=== PATIENT | female | born 1965 | race Caucasian/White ===

== ENCOUNTER 2020-03-01 06:39 | Outpatient (REF) | payer OTHER, SELFPAY ==
[2020-03-01 07:30] LABS: Alanine Aminotransferase 29 U/L (0-31); Albumin Level 4.3 g/dL (3.5-5.0); Alkaline Phosphatase 87 U/L (39-117); Anion Gap 11 (12-20); Aspartate Amino Transferase 19 U/L (5-31); Bilirubin Total 0.6 mg/dL (0.0-1.0); Blood Urea Nitrogen 20 mg/dL (9-16); Calcium 9.8 mg/dL (8.4-10.2); Carbon Dioxide 28 mmol/L (22-29); Chloride 105 mmol/L (96-108); Cholesterol 174 mg/dL; Estimated Glomerular Filt Rate > 60; Glucose Fasting 152 mg/dL (60-99); HDL Cholesterol 45 mg/dL; LDL Cholesterol Calculated 95 mg/dl; Potassium 4.2 mmol/l (3.3-5.1); Sodium 140 mmol/L (135-145); Total Protein 7.1 g/dL (6.5-8.0); Triglycerides 172 mg/dL
[2020-03-01 07:31] LABS: Creatinine Urine 147.66 mg/dL; Estimated Average Glucose 140 mg/dL; Hemoglobin A1c % 6.5 %; Microalbum/Creatinine Ratio Ur 6.7 ug/mg cr
== END 2020-03-01 06:40 | disposition home or self-care (01) ==
LOC: HO.LAB 06:39
PROVIDERS: Visit Provider Internal Medicine
DX: E78.5 Hyperlipidemia, unspecified (principal); R73.9 Hyperglycemia, unspecified; Z00.00 Encounter for general adult medical examination without abnormal findings
CPT/HCPCS: 80053; 80061; 82043; 83036

== ENCOUNTER 2020-06-07 09:09 | Outpatient (REF) | payer OTHER, SELFPAY ==
[2020-06-07 11:53] LABS: Alanine Aminotransferase 31 U/L (0-31); Albumin Level 4.5 g/dL (3.5-5.0); Alkaline Phosphatase 74 U/L (39-117); Anion Gap 15 (12-20); Aspartate Amino Transferase 21 U/L (5-31); Bilirubin Total 0.5 mg/dL (0.0-1.0); Blood Urea Nitrogen 21 mg/dL (9-16); Carbon Dioxide 26 mmol/L (22-29); Chloride 104 mmol/L (96-108); Cholesterol 197 mg/dL; Estimated Glomerular Filt Rate > 60; Glucose Fasting 128 mg/dL (60-99); HDL Cholesterol 46 mg/dL; LDL Cholesterol Calculated 107 mg/dl; Potassium 4.3 mmol/L (3.3-5.1); Sodium 141 mmol/L (135-145); Total Protein 7.3 g/dL (6.5-8.0); Triglycerides 222 mg/dL
[2020-06-07 12:08] LABS: Creatinine Urine 142.78 mg/dL; Microalbum/Creatinine Ratio Ur 7.7 ug/mg cr
[2020-06-07 13:23] LABS: Estimated Average Glucose 128 mg/dL; Hemoglobin A1c % 6.1 %
== END 2020-06-07 09:10 | disposition home or self-care (01) ==
LOC: HO.HMGCLDS 09:09
PROVIDERS: PCP Internal Medicine; Visit Provider Internal Medicine
DX: E11.9 Type 2 diabetes mellitus without complications (principal); K82.4 Cholesterolosis of gallbladder
CPT/HCPCS: 36415; 80053; 80061; 82043; 83036

== ENCOUNTER 2020-06-21 08:18 | Outpatient (REF) | payer OTHER, SELFPAY ==
--- NOTE | ~2020-06-21 | US_ITS ---
EXAMINATION: US ABDOMEN COMPLETE CLINICAL INFORMATION: Gallbladder polyp. COMPARISON: Ultrasound abdomen 08/11/2019 and 07/02/2017. TECHNIQUE: Real-time imaging of the abdominal viscera. FINDINGS: PANCREAS: The pancreas is homogeneous echotexture. The pancreatic duct measures 0.24 cm. ABDOMINAL AORTA: The proximal, mid, and distal segments are normal in caliber. INFERIOR VENA CAVA: Visualized portions are normal. LIVER: The liver is enlarged with the right hepatic lobe measuring 17.8 cm in length and left lobe measuring 15.5 cm in length. There is diffuse increased echogenicity. The liver contour is normal. No focal hepatic lesion. There is no intrahepatic biliary duct dilatation seen. GALLBLADDER: There are small echogenic nonmobile polyp measuring 0.48 x 0.43 x 0.40 cm. The gallbladder is physiologically distended without evidence of stones, sludge, wall thickening or pericholecystic fluid. COMMON BILE DUCT: Normal in caliber measuring 0.51 cm in diameter. RIGHT KIDNEY: There is echogenic stone midpole measuring 0.5 x 0.3 x 0.5 cm and a lower pole stone measuring 0.4 x 0.3 x 0.3 cm. There is no caliectasis, hydronephrosis or focal parenchymal lesions. The kidney measures 11.7 cm in maximum dimension. LEFT KIDNEY: Normal. No hydronephrosis. No renal calculi or focal parenchymal lesions. The kidney measures 12.2 cm in maximum dimension. SPLEEN: Normal. The spleen measures 10.6 cm in maximum dimension. FREE FLUID: None. US/US abdomen complete IMPRESSION: Nonobstructive echogenic stones right kidney. Small nonmobile gallbladder polyp measuring 0.48 seen. Mild hepatomegaly with hepatic steatosis.
== END 2020-06-21 08:19 | disposition home or self-care (01) ==
LOC: HO.HMGCX 08:18
PROVIDERS: Visit Provider Internal Medicine
DX: K82.4 Cholesterolosis of gallbladder (principal); E11.9 Type 2 diabetes mellitus without complications
CPT/HCPCS: 76700

== ENCOUNTER 2021-04-21 10:17 | Outpatient (REF) | payer OTHER, SELFPAY ==
[2021-04-21 11:22] LABS: Alanine Aminotransferase 50 U/L (0-31); Albumin Level 4.5 g/dL (3.5-5.0); Alkaline Phosphatase 74 U/L (39-117); Anion Gap 11 (12-20); Aspartate Amino Transferase 33 U/L (5-31); Bilirubin Total 0.7 mg/dL (0.0-1.0); Blood Urea Nitrogen 21 mg/dL (9-16); Calcium 9.8 mg/dL (8.4-10.2); Carbon Dioxide 27 mmol/L (22-29); Chloride 105 mmol/L (96-108); Estimated Glomerular Filt Rate > 60; Glucose Fasting 129 mg/dL (60-99); Potassium 4.4 mmol/L (3.3-5.1); Sodium 139 mmol/L (135-145); Total Protein 7.3 g/dL (6.5-8.0)
[2021-04-21 11:36] LABS: Estimated Average Glucose 148 mg/dL; Hemoglobin A1c % 6.8 %
== END 2021-04-21 10:18 | disposition home or self-care (01) ==
LOC: HO.LAB 10:17
PROVIDERS: PCP Internal Medicine; Visit Provider Internal Medicine
DX: E11.9 Type 2 diabetes mellitus without complications (principal); E66.3 Overweight
CPT/HCPCS: 36415; 80053; 83036

== ENCOUNTER 2021-10-24 07:51 | Outpatient (REF) | payer OTHER, SELFPAY ==
[2021-10-24 08:26] LABS: Estimated Average Glucose 140 mg/dL; Hemoglobin A1c % 6.5 %
[2021-10-24 08:50] LABS: Alanine Aminotransferase 47 U/L (0-31); Albumin Level 4.3 g/dL (3.5-5.0); Alkaline Phosphatase 76 U/L (39-117); Anion Gap 13 (12-20); Aspartate Amino Transferase 32 U/L (5-31); Bilirubin Total 0.5 mg/dL (0.0-1.0); Blood Urea Nitrogen 22 mg/dL (9-16); Calcium 9.2 mg/dL (8.4-10.2); Carbon Dioxide 27 mmol/L (22-29); Chloride 105 mmol/L (96-108); Cholesterol 170 mg/dL; Estimated Glomerular Filt Rate > 60; Glucose Fasting 141 mg/dL (60-99); HDL Cholesterol 39 mg/dL; LDL Cholesterol Calculated 94 mg/dl; Potassium 4.2 mmol/L (3.3-5.1); Sodium 141 mmol/L (135-145); Total Protein 6.9 g/dL (6.5-8.0); Triglycerides 189 mg/dL
[2021-10-24 09:51] LABS: Creatinine Urine 135.64 mg/dL; Microalbum/Creatinine Ratio Ur 5.8 ug/mg cr
== END 2021-10-24 07:52 | disposition home or self-care (01) ==
LOC: HO.LAB 07:51
PROVIDERS: PCP Internal Medicine; Visit Provider Internal Medicine
DX: Z00.00 Encounter for general adult medical examination without abnormal findings (principal); E11.9 Type 2 diabetes mellitus without complications
CPT/HCPCS: 36415; 80053; 80061; 82043; 83036

== ENCOUNTER 2022-02-02 08:01 | Outpatient (REF) | payer OTHER, SELFPAY ==
[2022-02-02 08:43] LABS: Estimated Average Glucose 137 mg/dL; Hemoglobin A1c % 6.4 %
[2022-02-02 08:56] LABS: Alanine Aminotransferase 28 U/L (0-31); Albumin Level 4.2 g/dL (3.5-5.0); Alkaline Phosphatase 91 U/L (39-117); Anion Gap 15 (12-20); Aspartate Amino Transferase 17 U/L (5-31); Bilirubin Total 0.5 mg/dL (0.0-1.0); Blood Urea Nitrogen 21 mg/dL (9-16); Calcium 9.5 mg/dL (8.4-10.2); Carbon Dioxide 24 mmol/L (22-29); Chloride 105 mmol/L (96-108); Cholesterol 168 mg/dL; Estimated Glomerular Filt Rate > 60; Glucose Fasting 140 mg/dL (60-99); HDL Cholesterol 39 mg/dL; LDL Cholesterol Calculated 88 mg/dl; Potassium 4.1 mmol/L (3.3-5.1); Sodium 140 mmol/L (135-145); Total Protein 6.6 g/dL (6.5-8.0); Triglycerides 208 mg/dL
[2022-02-02 09:33] LABS: Creatinine Urine 151.98 mg/dL; Microalbum/Creatinine Ratio Ur 5.2 ug/mg cr
== END 2022-02-02 08:02 | disposition home or self-care (01) ==
LOC: HO.LAB 08:01
PROVIDERS: PCP Internal Medicine; Visit Provider Internal Medicine
DX: E11.9 Type 2 diabetes mellitus without complications (principal); F41.9 Anxiety disorder, unspecified; E66.3 Overweight
CPT/HCPCS: 36415; 80053; 80061; 82043; 83036

== ENCOUNTER 2022-06-12 09:15 | Outpatient (REF) | payer OTHER, SELFPAY ==
[2022-06-12 10:39] LABS: Estimated Average Glucose 140 mg/dL; Hemoglobin A1c % 6.5 %
[2022-06-12 11:05] LABS: Alanine Aminotransferase 36 U/L (0-31); Albumin Level 4.3 g/dL (3.5-5.0); Alkaline Phosphatase 85 U/L (39-117); Anion Gap 13 (12-20); Aspartate Amino Transferase 26 U/L (5-31); Bilirubin Total 0.7 mg/dL (0.0-1.0); Blood Urea Nitrogen 20 mg/dL (9-16); Calcium 9.5 mg/dL (8.4-10.2); Carbon Dioxide 26 mmol/L (22-29); Chloride 107 mmol/L (96-108); Cholesterol 199 mg/dL; Estimated Glomerular Filt Rate > 60; Glucose Fasting 148 mg/dL (60-99); HDL Cholesterol 41 mg/dL; LDL Cholesterol Calculated 110 mg/dl; Potassium 4.6 mmol/L (3.3-5.1); Sodium 141 mmol/L (135-145); Total Protein 6.9 g/dL (6.5-8.0); Triglycerides 242 mg/dL
== END 2022-06-12 09:16 | disposition home or self-care (01) ==
LOC: HO.LAB 09:15
PROVIDERS: PCP Internal Medicine; Visit Provider Internal Medicine
DX: E11.9 Type 2 diabetes mellitus without complications (principal)
CPT/HCPCS: 36415; 80053; 80061; 83036

== ENCOUNTER 2022-11-26 08:13 | Outpatient (REF) | payer OTHER, SELFPAY ==
[2022-11-26 08:39] LABS: MANUAL DIFF FLAG NO
[2022-11-26 08:55] LABS: Basophils Percent Auto 0.5 % (0-2); Eosinophils Absolute Auto 0.1 X10*3/uL (0.0-0.4); Eosinophils Percent Auto 1.4 % (0-4); Hematocrit 44.6 % (37.0-47.0); Hemoglobin 14.8 g/dl (12.0-16.0); Imm Gran Abs Auto 0.03 X10*3/uL (0.00-0.03); Imm Gran Pct Auto 0.5 % (0.0-0.4); Lymphocytes Absolute Auto 2.2 X10*3/uL (1.2-4.9); Lymphocytes Percent Auto 32.5 % (20-40); Mean Corpuscular HGB Conc 33.2 g/dl (31.0-35.0); Mean Corpuscular Hemoglobin 28.8 pg (27.0-33.0); Mean Corpuscular Volume 86.8 fL (80.0-98.0); Mean Platelet Volume 9.3 fL (9.4-12.3); Monocytes Absolute Auto 0.5 X10*3/uL (0.1-1.2); Monocytes Percent Auto 7.7 % (2-11); Neutrophils Absolute Auto 3.8 x10*3/uL (2.0-8.3); Neutrophils Percent Auto 57.4 % (45-73); Platelet Count 201 X10*3/uL (160-400); Red Blood Count 5.14 X10*6/uL (4.20-5.50); Red Cell Distribution Width 12.2 % (11.0-16.0); White Blood Count 6.6 X10*3/uL (4.8-10.8)
[2022-11-26 09:23] LABS: Estimated Average Glucose 111 mg/dL; Hemoglobin A1c % 5.5 % (<6.0)
[2022-11-26 11:12] LABS: Alanine Aminotransferase 31 U/L (0-31); Albumin Level 4.1 g/dL (3.5-5.0); Alkaline Phosphatase 73 U/L (39-117); Anion Gap 13 (12-20); Aspartate Amino Transferase 22 U/L (5-31); Bilirubin Total 0.5 mg/dL (0.0-1.0); Blood Urea Nitrogen 21 mg/dL (9-16); Calcium 9.4 mg/dL (8.4-10.2); Carbon Dioxide 25 mmol/L (22-29); Chloride 107 mmol/L (96-108); Cholesterol 184 mg/dL (<200); Estimated Glomerular Filt Rate > 60; Glucose Fasting 108 mg/dL (60-99); HDL Cholesterol 45 mg/dL (>40); LDL Cholesterol Calculated 101 mg/dL (<100); Potassium 4.2 mmol/L (3.3-5.1); Sodium 141 mmol/L (135-145); Total Protein 6.9 g/dL (6.5-8.0); Triglycerides 194 mg/dL (<150)
[2022-11-26 11:30] LABS: Creatinine Urine 164.86 mg/dL; Microalbumin Urine < 5.0 mg/L
== END 2022-11-26 08:14 | disposition home or self-care (01) ==
LOC: HO.LAB 08:13
PROVIDERS: PCP Internal Medicine; Visit Provider Internal Medicine
DX: E11.9 Type 2 diabetes mellitus without complications (principal); E66.3 Overweight
CPT/HCPCS: 36415; 80053; 80061; 82043; 82570; 83036; 85025

== ENCOUNTER 2022-11-29 11:30 | Outpatient (AMB) | payer OTHER, SELFPAY ==
[2022-11-29 11:47] VITALS: BP 116/74; PULSE 87; O2SAT 97; BMI 36.2
--- NOTE | 2022-11-29 11:47 | MHC.PC.OV ---
Vital Signs 11/29/22 11:47 Height 5 ft 6 in Weight 224 lb BMI 36.2 BP 116/74 Blood Pressure Location Lt brachial Position Sitting Pulse 87 Pulse Source Pulse Oximeter Pulse Oximetry (%) 97 Oxygen Delivery Method Room Air Intake Visit Reasons: PHy Intake Note: Pt is here today for PE. Pt states that she has [employer] for cytology exam. Allergies erythromycin base Allergy (Unknown, Verified 11/29/22 11:54) Unknown hazelnut Allergy (Unknown, Verified 11/29/22 11:54) Unknown Sulfa (Sulfonamide Antibiotics) Allergy (Unknown, Verified 11/29/22 11:54) Unknown sulfamethoxazole [From Bactrim] Allergy (Unknown, Verified 11/29/22 11:54) Hives trimethoprim [From Bactrim] Allergy (Unknown, Verified 11/29/22 11:54) Hives Tobacco use date assessed: 11/29/22 Dental Screening Dental Screen Date: 11/29/22 Did you have a dental visit in the last 12 months?: Yes Did you have a dental problem in the last 6 months where you did not have access to dental care?: No Was dental information given to patient?: Patient has dentist HPI PHy HPI Details PT presents for PE PFSH Medical History Gallbladder polyp Mammogram normal Abnormal colonoscopy Overweight Anxiety Annual physical exam Endometrial adenocarcinoma DM type 2 (diabetes mellitus, type 2) Surgical History History of surgery Family History Father Colon cancer Breast cancer Lung cancer Diabetes mellitus HTN (hypertension) Mother Diabetes mellitus HTN (hypertension) Social History Housing: House Alcohol intake: current Patient Tobacco Use Status: Former Tobacco user Years Smoked: quit 16 years ago e-Cigarette/Vaping Use: Never Used Second Hand Smoke Exposure: No Current occupational status: employed Current occupation: [employer] Current occupational exposures/hazards: No Cognitive needs: No Hearing needs: No Vision needs: No Questionnaire Thrive Questionnaire Date Thrive assessed: 06/19/22 PARTH-7 AMB Questionnaire PARTH-7 Date PARTH - 7 assessed: 04/12/23 Source: Developed by Drs. Earnest Clayton, Joselyn Cedillo, Venu Shoemaker and colleagues, with an educational abdiaziz from [employer]. Review of Systems Const All systems reviewed & are unremarkable except as noted in HPI and below Reports no additional complaints Eyes Reports no additional complaints ENT Reports no additional complaints Card Reports no additional complaints Resp Reports no additional complaints GI Reports no additional complaints Reports no additional complaints Physical exam (Primary Care) Vital Signs: Last Vital Signs Pulse 87 11/29/22 11:47 BP 116/74 11/29/22 11:47 Pulse Ox 97 11/29/22 11:47 Oxygen Delivery Method Room Air 11/29/22 11:47 BMI result Body Mass Index 36.2 Tobacco/Smoking Status: Tobacco use Status Tobacco use date assessed 11/29/22 11/29/22 11:58 Patient Tobacco Use Status Former Tobacco user 11/29/22 11:58 e-Cigarette/Vaping Use Never Used 11/29/22 11:47 Thrive Assessment: Date of Thrive Assessment Date Thrive assessed 06/19/22 11/29/22 11:47 Const General: no acute distress HENMT Head: Yes normal to inspection Ears: hearing grossly normal bilaterally Mouth: Normal oral and palatal mucosa present Throat: Yes posterior oropharynx normal Neck Neck: Yes no lymphadenopathy and Yes supple Resp Effort & Inspection: normal respiratory effort Auscultation: clear to auscultation bilaterally Cardio Rhythm: regular rhythm Heart sounds: S1 normal heart sound present and S2 normal heart sound present GI Inspection: Yes normal to inspection Palpation (GI): Soft to palpation Percussion: Yes normal to percussion Auscultation: normal bowel sounds Assessment and Plan Assessment & Plan (1) DM type 2 (diabetes mellitus, type 2): Code(s): E11.9 - Type 2 diabetes mellitus without complications Plan: A1C is 5.5, cont ADA exercise, current meds (2) Anxiety: Code(s): F41.9 - Anxiety disorder, unspecified Plan: cont Citalopram (3) Annual physical exam: Code(s): Z00.00 - Encounter for general adult medical examination without abnormal findings Plan: well balanced diet, exercise, weight loss discussed, f/u 4 months Orders: Orders Comprehensive [place]. Panel Fast 4 Months E11.9 - Type 2 diabetes mellitus without complications, Z00.00 - Encounter for general adult medical examination without abnormal findings Hemoglobin A1c 4 Months E11.9 - Type 2 diabetes mellitus without complications, Z00.00 - Encounter for general adult medical examination without abnormal findings Microalbumin 24 hr Urine 4 Months E11.9 - Type 2 diabetes mellitus without complications, Z00.00 - Encounter for general adult medical examination without abnormal findings Lipid Panel 4 Months E11.9 - Type 2 diabetes mellitus without complications, Z00.00 - Encounter for general adult medical examination without abnormal findings Complete Blood Count Auto Diff 4 Months E11.9 - Type 2 diabetes mellitus without complications, Z00.00 - Encounter for general adult medical examination without abnormal findings Referrals Counseling Referral F41.9 - Anxiety disorder, unspecified Coding Level of Care Code Est Pt Prev Care 40-64y(14709) Diagnoses DM type 2 (diabetes mellitus, type 2) E11.9 Anxiety F41.9 Annual physical exam Z00.00
== END 2022-11-29 14:52 | disposition home or self-care (01) ==
PROVIDERS: PCP Internal Medicine; Visit Provider Internal Medicine
DX: E11.9 Type 2 diabetes mellitus without complications (principal); F41.9 Anxiety disorder, unspecified; Z00.00 Encounter for general adult medical examination without abnormal findings
CPT/HCPCS: 99396

== ENCOUNTER 2023-04-26 08:57 | Outpatient (REF) | payer OTHER, SELFPAY ==
[2023-04-26 09:13] LABS: MANUAL DIFF FLAG NO
[2023-04-26 10:04] LABS: Basophils Percent Auto 0.5 % (0-2); Eosinophils Absolute Auto 0.1 X10*3/uL (0.0-0.4); Eosinophils Percent Auto 0.8 % (0-4); Hematocrit 45.5 % (37.0-47.0); Hemoglobin 14.9 g/dl (12.0-16.0); Imm Gran Abs Auto 0.02 X10*3/uL (0.00-0.03); Imm Gran Pct Auto 0.3 % (0.0-0.4); Lymphocytes Absolute Auto 1.8 X10*3/uL (1.2-4.9); Lymphocytes Percent Auto 29.4 % (20-40); Mean Corpuscular HGB Conc 32.7 g/dl (31.0-35.0); Mean Corpuscular Hemoglobin 28.4 pg (27.0-33.0); Mean Corpuscular Volume 86.8 fL (80.0-98.0); Mean Platelet Volume 10.2 fL (9.4-12.3); Monocytes Absolute Auto 0.4 X10*3/uL (0.1-1.2); Monocytes Percent Auto 6.9 % (2-11); Neutrophils Absolute Auto 3.9 x10*3/uL (2.0-8.3); Neutrophils Percent Auto 62.1 % (45-73); Platelet Count 232 X10*3/uL (160-400); Red Blood Count 5.24 X10*6/uL (4.20-5.50); Red Cell Distribution Width 12.4 % (11.0-16.0); White Blood Count 6.3 X10*3/uL (4.8-10.8)
[2023-04-26 10:25] LABS: Estimated Average Glucose 108 mg/dL; Hemoglobin A1c % 5.4 % (<6.0)
[2023-04-26 10:35] LABS: Alanine Aminotransferase 33 U/L (0-31); Albumin Level 4.3 g/dL (3.5-5.0); Alkaline Phosphatase 80 U/L (39-117); Anion Gap 12 (12-20); Aspartate Amino Transferase 21 U/L (5-31); Bilirubin Total 0.5 mg/dL (0.0-1.0); Blood Urea Nitrogen 20 mg/dL (9-16); Calcium 9.9 mg/dL (8.4-10.2); Carbon Dioxide 27 mmol/L (22-29); Chloride 107 mmol/L (96-108); Cholesterol 176 mg/dL (<200); Estimated Glomerular Filt Rate > 60; Glucose Fasting 91 mg/dL (60-99); HDL Cholesterol 48 mg/dL (>40); LDL Cholesterol Calculated 103 mg/dL (<100); Potassium 4.2 mmol/L (3.3-5.1); Sodium 142 mmol/L (135-145); Total Protein 7.2 g/dL (6.5-8.0); Triglycerides 125 mg/dL (<150)
== END 2023-04-26 08:58 | disposition home or self-care (01) ==
LOC: HO.LAB 08:57
PROVIDERS: PCP Internal Medicine; Visit Provider Internal Medicine
DX: Z00.00 Encounter for general adult medical examination without abnormal findings (principal); E11.9 Type 2 diabetes mellitus without complications
CPT/HCPCS: 36415; 80053; 80061; 83036; 85025

== ENCOUNTER 2023-04-30 10:53 | Outpatient (AMB) | payer OTHER, SELFPAY ==
[2023-04-30 11:23] VITALS: BP 124/76; PULSE 78; O2SAT 98; BMI 34.7
--- NOTE | 2023-04-30 11:23 | MHC.PC.OV ---
Vital Signs 04/30/23 11:23 Height 5 ft 6 in Weight 215 lb BMI 34.7 BP 124/76 Blood Pressure Location Lt brachial Position Sitting Pulse 78 Pulse Source Pulse Oximeter Pulse Oximetry (%) 98 Oxygen Delivery Method Room Air Intake Visit Reasons: 4 month follow up Intake Note: Pt is here today for 4 months follow up vsit. Allergies erythromycin base Allergy (Unknown, Verified 04/30/23 11:35) Unknown hazelnut Allergy (Unknown, Verified 04/30/23 11:35) Unknown Sulfa (Sulfonamide Antibiotics) Allergy (Unknown, Verified 04/30/23 11:35) Unknown sulfamethoxazole [From Bactrim] Allergy (Unknown, Verified 04/30/23 11:35) Hives trimethoprim [From Bactrim] Allergy (Unknown, Verified 04/30/23 11:35) Hives Medication List - Last Reconciled 04/30/23 by Chata Romero MD citalopram 20 mg PO DAILY dulaglutide (Trulicity) 1.5 mg (0.5 mL) subcut QWEEK dulaglutide (Trulicity) 3 mg (0.5 mL) subcut QWEEK epinephrine (EpiPen 2-Trey) 0.3 mg (0.3 mL) IM Q10M PRN [fish oil 1000 mg daily] lorazepam 0.5 mg PO DAILY PRN metformin ER 1,500 mg (2 x 750 mg) PO DAILY Tobacco use date assessed: 04/30/23 Dental Screening Dental Screen Date: 04/30/23 Did you have a dental visit in the last 12 months?: Yes Did you have a dental problem in the last 6 months where you did not have access to dental care?: No Was dental information given to patient?: Patient has dentist HPI 4 month follow up HPI Details Pt presents for f/u DM 2. Patient has been working out 7 times a week and lost 12 lb. She has been tolerating Trulicity and following ADA diet. Chronic anxiety stable on citalopram. Patient is going to [place] in July for a [facility] Medical History Gallbladder polyp Mammogram normal Abnormal colonoscopy Overweight Anxiety Annual physical exam Endometrial adenocarcinoma DM type 2 (diabetes mellitus, type 2) Surgical History History of surgery Family History Father Colon cancer Breast cancer Lung cancer Diabetes mellitus HTN (hypertension) Mother Diabetes mellitus HTN (hypertension) Social History Housing: House Alcohol intake: current Patient Tobacco Use Status: Former Tobacco user Years Smoked: quit 16 years ago e-Cigarette/Vaping Use: Never Used Second Hand Smoke Exposure: No Current occupational status: employed Current occupation: [employer] Current occupational exposures/hazards: No Cognitive needs: No Hearing needs: No Vision needs: No Questionnaire PHQ-9 Over the last 2 weeks, how often have you been bothered by any of the following problems? 1. Little interest or pleasure in doing things: not at all 2. Feeling down, depressed, or hopeless: not at all 3. Trouble falling or staying asleep, or sleeping too much: not at all 4. Feeling tired or having little energy: not at all 5. Poor appetite or overeating: not at all 6. Feeling bad about yourself - or that you are a failure or have let yourself or your family down: not at all 7. Trouble concentrating on things, such as reading the newspaper or watching television: not at all 8. Moving or speaking so slowly that other people could have noticed. Or the opposite - being so fidgety or restless that you have been moving around a lot more than usual: not at all 9. Thoughts that you would be better off or of hurting yourself in some way: not at all Total score: 0 Depression Screening Interpretation: Negative Depression Screening Done: Yes Source: Developed by Drs. Earnest Clayton, Joselyn Cedillo, Venu Shoemaker and colleagues, with an educational abdiaziz from [employer]. Thrive Questionnaire Date Thrive assessed: 04/30/23 I am a: Patient What is your living situation today?: I have a steady place to live Within the past 12 months, did the food you bought not last and you didn't have the money to get more?: Never true Within the past 12 months, did you worry whether your food would run out before you got money to buy more?: Never true Do you have trouble paying for medicines?: No Do you have trouble getting transportation to medical appointments?: No Do you have trouble paying your heating and electricity bill?: No Do you have trouble taking care of your child, family member or friend?: No Do you have trouble with day-to-day activities such as bathing, preparing meals, shopping, managing finances, etc.?: No Are you currently unemployed and looking for a job?: No Are you interested in more education?: No Please select the resources that you would like help with: None Currently or been in a relationship where the following occur: no concerns reported THRIVE Score: 0 AUDIT C Alcohol Use Questionnaire (AUDIT-C) 1. How often do you have a drink containing alcohol?: Monthly or less 2. How many drinks containing alcohol do you have on a typical day when you are drinking?: 1 or 2 3. How often do you have six or more drinks on one occasion?: Never Total Score: 1 PARTH-7 AMB Questionnaire PARTH-7 Date PARTH - 7 assessed: 04/30/23 Feeling nervous, anxious, or on edge: 0 = Not at all Not being able to stop or control worryin = Not at all Worrying too much about different things: 0 = Not at all Trouble relaxin = Not at all Being so restless that it is hard to sit still: 0 = Not at all Becoming easily annoyed or irritable: 0 = Not at all Feeling afraid as if something awful might happen: 0 = Not at all Total PARTH-7 score (0-4 normal; 5-9 mild; 10-14 moderate; 15-21 severe): 0 Source: Developed by Drs. Earnest Clayton, Joselyn Cedillo, Venu Shoemaker and colleagues, with an educational abdiaziz from [employer]. Review of Systems Const All systems reviewed & are unremarkable except as noted in HPI and below Reports no additional complaints Eyes Reports no additional complaints ENT Reports no additional complaints Card Reports no additional complaints Resp Reports no additional complaints GI Reports no additional complaints Physical exam (Primary Care) Vital Signs: Last Vital Signs Pulse 78 04/30/23 11:23 BP 124/76 04/30/23 11:23 Pulse Ox 98 04/30/23 11:23 Oxygen Delivery Method Room Air 04/30/23 11:23 BMI result Body Mass Index 34.7 Tobacco/Smoking Status: Tobacco use Status Tobacco use date assessed 04/30/23 04/30/23 11:38 Patient Tobacco Use Status Former Tobacco user 04/30/23 11:23 e-Cigarette/Vaping Use Never Used 04/30/23 11:23 PHQ-9: PHQ-9 Score PHQ-9: Total score 0 04/30/23 11:38 Depression Screening Interpretation: Negative Thrive Assessment: Date of Thrive Assessment Date Thrive assessed 04/30/23 04/30/23 11:38 Currently or been in a relationship where the following occur: no concerns reported Const General: no acute distress HENMT Head: Yes normal to inspection Neck Neck: Yes supple Resp Effort & Inspection: normal respiratory effort Auscultation: clear to auscultation bilaterally Cardio Rhythm: regular rhythm Heart sounds: S1 normal heart sound present and S2 normal heart sound present GI Inspection: Yes normal to inspection Palpation (GI): Soft to palpation Percussion: Yes normal to percussion Auscultation: normal bowel sounds Assessment and Plan Assessment & Plan (1) DM type 2 (diabetes mellitus, type 2): Code(s): E11.9 - Type 2 diabetes mellitus without complications Plan: A1c is 5.5. ADA diet regular physical activity continue to to lose weight discussed with the patient. Trulicity will be increased to 3 mg weekly and metformin decreased to 750 mg daily. Follow-up in 3 months with a fasting labs before (2) Overweight: Code(s): E66.3 - Overweight Plan: Continue regular exercise and decrease caloric intake (3) Anxiety: Code(s): F41.9 - Anxiety disorder, unspecified Plan: Continue citalopram (4) Endometrial adenocarcinoma: Comment: s/p hysterectomy 2017, annual surgical oncologist Code(s): C54.1 - Malignant neoplasm of endometrium Plan: Follow-up with surgical oncologist annually Orders: Orders Comprehensive [place]. Panel Fast 3 Months E11.9 - Type 2 diabetes mellitus without complications Hemoglobin A1c 3 Months E11.9 - Type 2 diabetes mellitus without complications Lipid Panel 3 Months E11.9 - Type 2 diabetes mellitus without complications Medications: New dulaglutide (Trulicity) 3 mg (0.5 mL) subcut QWEEK 2 mL 3RF Changed From metformin ER 1,500 mg (2 x 750 mg) PO DAILY 180 tabs 3RF To metformin ER 750 mg PO DAILY 90 tabs 3RF Discontinued dulaglutide (Trulicity) Discontinued Reason: Doctor's Order 1.5 mg (0.5 mL) subcut QWEEK 6 mL 3RF Coding Level of Care Code Est Pt Level 4 (75599) Diagnoses DM type 2 (diabetes mellitus, type 2) E11.9 Overweight E66.3 Anxiety F41.9 Endometrial adenocarcinoma C54.1
== END 2023-04-30 12:06 | disposition home or self-care (01) ==
PROVIDERS: PCP Internal Medicine; Visit Provider Internal Medicine
DX: E11.9 Type 2 diabetes mellitus without complications (principal); E66.3 Overweight; F41.9 Anxiety disorder, unspecified; C54.1 Malignant neoplasm of endometrium
CPT/HCPCS: 99214

== ENCOUNTER 2023-07-09 08:37 | Outpatient (REF) | payer OTHER, SELFPAY ==
[2023-07-09 09:24] LABS: Estimated Average Glucose 111 mg/dL; Hemoglobin A1c % 5.5 % (<6.0)
[2023-07-09 09:41] LABS: Alanine Aminotransferase 23 U/L (0-31); Albumin Level 4.2 g/dL (3.5-5.0); Alkaline Phosphatase 70 U/L (39-117); Anion Gap 12 (12-20); Aspartate Amino Transferase 18 U/L (5-31); Bilirubin Total 0.4 mg/dL (0.0-1.0); Blood Urea Nitrogen 20 mg/dL (9-16); Calcium 9.3 mg/dL (8.4-10.2); Carbon Dioxide 24 mmol/L (22-29); Chloride 108 mmol/L (96-108); Cholesterol 170 mg/dL (<200); Estimated Glomerular Filt Rate > 60; Glucose Fasting 112 mg/dL (60-99); HDL Cholesterol 44 mg/dL (>40); LDL Cholesterol Calculated 106 mg/dL (<100); Potassium 3.9 mmol/L (3.3-5.1); Sodium 140 mmol/L (135-145); Triglycerides 103 mg/dL (<150)
== END 2023-07-09 08:38 | disposition home or self-care (01) ==
LOC: HO.LAB 08:37
PROVIDERS: PCP Internal Medicine; Visit Provider Internal Medicine
DX: E11.9 Type 2 diabetes mellitus without complications (principal)
CPT/HCPCS: 36415; 80053; 80061; 83036

== ENCOUNTER 2023-07-16 11:00 | Outpatient (AMB) | payer OTHER, SELFPAY ==
--- NOTE | 2023-07-16 11:03 | MHC.PC.OV ---
Vital Signs 07/16/23 11:05 Height 5 ft 6 in Weight 201 lb BMI 32.4 BP 122/70 Blood Pressure Location Rt brachial Position Sitting Pulse 75 Pulse Source Pulse Oximeter Pulse Oximetry (%) 98 Oxygen Delivery Method Room Air Intake Visit Reasons: 5M F/U Intake Note: Pt is here today for 5 months follow up visit. Allergies erythromycin base Allergy (Unknown, Verified 07/16/23 11:07) Unknown hazelnut Allergy (Unknown, Verified 07/16/23 11:07) Unknown Sulfa (Sulfonamide Antibiotics) Allergy (Unknown, Verified 07/16/23 11:07) Unknown sulfamethoxazole [From Bactrim] Allergy (Unknown, Verified 07/16/23 11:07) Hives trimethoprim [From Bactrim] Allergy (Unknown, Verified 07/16/23 11:07) Hives Medication List - Last Reconciled 07/16/23 by Chata Romero MD citalopram 20 mg PO DAILY dulaglutide (Trulicity) 3 mg (0.5 mL) subcut QWEEK epinephrine (EpiPen 2-Trey) 0.3 mg (0.3 mL) IM Q10M PRN [fish oil 1000 mg daily] lorazepam 0.5 mg PO DAILY PRN metformin ER 750 mg PO DAILY Tobacco use date assessed: 07/16/23 Dental Screening Dental Screen Date: 04/30/23 HPI 5M F/U HPI Details Pt presents for f/u DM 2. She would lost 12 lb since last visit exercising at the gym every other day and eating well-balanced diet. Patient is going to [place] for her step son wed. [facility] Medical History Gallbladder polyp Mammogram normal Abnormal colonoscopy Overweight Anxiety Annual physical exam Endometrial adenocarcinoma DM type 2 (diabetes mellitus, type 2) Surgical History History of surgery Family History Father Colon cancer Breast cancer Lung cancer Diabetes mellitus HTN (hypertension) Mother Diabetes mellitus HTN (hypertension) Social History Housing: House Alcohol intake: current Patient Tobacco Use Status: Former Tobacco user Years Smoked: quit 16 years ago e-Cigarette/Vaping Use: Never Used Second Hand Smoke Exposure: No service: No Current occupational status: employed Current occupation: [email or web address] Current occupational exposures/hazards: No Cognitive needs: No Hearing needs: No Vision needs: No Questionnaire Thrive Questionnaire Date Thrive assessed: 04/30/23 I am a: Patient What is your living situation today?: I have a steady place to live Within the past 12 months, did the food you bought not last and you didn't have the money to get more?: Never true Within the past 12 months, did you worry whether your food would run out before you got money to buy more?: Never true Please select the resources that you would like help with: None THRIVE Score: 0 AUDIT C Alcohol Use Questionnaire (AUDIT-C) 1. How often do you have a drink containing alcohol?: 2-4 times a month 2. How many drinks containing alcohol do you have on a typical day when you are drinking?: 1 or 2 3. How often do you have six or more drinks on one occasion?: Never Total Score: 2 PARTH-7 AMB Questionnaire PARTH-7 Date PARTH - 7 assessed: 04/30/23 Feeling nervous, anxious, or on edge: 2 = More than half the days Not being able to stop or control worryin = More than half the days Worrying too much about different things: 1 = Several days Trouble relaxin = Several days Being so restless that it is hard to sit still: 1 = Several days Becoming easily annoyed or irritable: 0 = Not at all Feeling afraid as if something awful might happen: 2 = More than half the days Total PARTH-7 score (0-4 normal; 5-9 mild; 10-14 moderate; 15-21 severe): 9 Source: Developed by Drs. Earnest Clayton, Joselyn Cedillo, Venu Shoemaker and colleagues, with an educational abdiaziz from [employer]. Review of Systems Const All systems reviewed & are unremarkable except as noted in HPI and below ENT Reports no additional complaints Card Reports no additional complaints Resp Reports no additional complaints GI Reports no additional complaints Reports no additional complaints Physical exam (Primary Care) Vital Signs: Last Vital Signs Pulse 75 07/16/23 11:05 BP 122/70 07/16/23 11:05 Pulse Ox 98 07/16/23 11:05 Oxygen Delivery Method Room Air 07/16/23 11:05 BMI result Body Mass Index 32.4 Tobacco/Smoking Status: Tobacco use Status Tobacco use date assessed 07/16/23 07/16/23 11:08 Patient Tobacco Use Status Former Tobacco user 07/16/23 11:04 e-Cigarette/Vaping Use Never Used 07/16/23 11:04 Thrive Assessment: Date of Thrive Assessment Date Thrive assessed 04/30/23 07/16/23 11:04 Const General: no acute distress Neck Neck: Yes supple Resp Effort & Inspection: normal respiratory effort Auscultation: clear to auscultation bilaterally Cardio Rhythm: regular rhythm Heart sounds: S1 normal heart sound present and S2 normal heart sound present Assessment and Plan Assessment & Plan (1) DM type 2 (diabetes mellitus, type 2): Code(s): E11.9 - Type 2 diabetes mellitus without complications Plan: A1c is 5.6, ADA diet regular physical activity discussed with the patient she will stop metformin and continue Trulicity. Follow-up in 6 months with a fasting labs before (2) Endometrial adenocarcinoma: Comment: s/p hysterectomy 2016, annual rn gyn Code(s): C54.1 - Malignant neoplasm of endometrium Plan: Follow-up with rn gyn (3) Anxiety: Code(s): F41.9 - Anxiety disorder, unspecified Plan: Continue citalopram follow-up with a counselor (4) Abnormal colonoscopy: Comment: 03/2018 1 polyp , recheck 08/31 FHx of colon ca Code(s): R93.3 - Abnormal findings on diagnostic imaging of other parts of digestive tract Orders: Orders Complete Blood Count Auto Diff 6 Months C54.1 - Malignant neoplasm of endometrium, E11.9 - Type 2 diabetes mellitus without complications, F41.9 - Anxiety disorder, unspecified, R93.3 - Abnormal findings on diagnostic imaging of other parts of digestive tract Hemoglobin A1c 6 Months C54.1 - Malignant neoplasm of endometrium, E11.9 - Type 2 diabetes mellitus without complications, F41.9 - Anxiety disorder, unspecified, R93.3 - Abnormal findings on diagnostic imaging of other parts of digestive tract Microalbumin, Random (w Creat) 6 Months C54.1 - Malignant neoplasm of endometrium, E11.9 - Type 2 diabetes mellitus without complications, F41.9 - Anxiety disorder, unspecified, R93.3 - Abnormal findings on diagnostic imaging of other parts of digestive tract Comprehensive [place]. Panel Fast 6 Months C54.1 - Malignant neoplasm of endometrium, E11.9 - Type 2 diabetes mellitus without complications, F41.9 - Anxiety disorder, unspecified, R93.3 - Abnormal findings on diagnostic imaging of other parts of digestive tract Medications: Refilled lorazepam 0.5 mg PO DAILY PRN 20 tabs 0RF anxiety epinephrine (EpiPen 2-Trey) for 2 doses 0.3 mg (0.3 mL) IM Q10M PRN 2 ea 2RF anaphylaxis Discontinued metformin ER Discontinued Reason: Doctor's Order 750 mg PO DAILY 90 tabs 3RF Coding Level of Care Code Est Pt Level 3 (50728) Diagnoses DM type 2 (diabetes mellitus, type 2) E11.9 Endometrial adenocarcinoma C54.1 Anxiety F41.9 Abnormal colonoscopy R93.3
[2023-07-16 11:05] VITALS: BP 122/70; PULSE 75; O2SAT 98; BMI 32.4
== END 2023-07-16 11:48 | disposition home or self-care (01) ==
PROVIDERS: PCP Internal Medicine; Visit Provider Internal Medicine
DX: E11.9 Type 2 diabetes mellitus without complications (principal); C54.1 Malignant neoplasm of endometrium; F41.9 Anxiety disorder, unspecified; R93.3 Abnormal findings on diagnostic imaging of other parts of digestive tract
CPT/HCPCS: 99213

== ENCOUNTER 2024-02-07 10:09 | Outpatient (REF) | payer OTHER, SELFPAY ==
[2024-02-07 10:25] LABS: MANUAL DIFF FLAG NO
[2024-02-07 10:39] LABS: Basophils Percent Auto 0.4 % (0-2); Eosinophils Absolute Auto 0.1 X10*3/uL (0.0-0.4); Eosinophils Percent Auto 1.8 % (0-4); Hematocrit 44.4 % (37.0-47.0); Hemoglobin 14.6 g/dl (12.0-16.0); Imm Gran Abs Auto 0.02 X10*3/uL (0.00-0.03); Imm Gran Pct Auto 0.3 % (0.0-0.4); Lymphocytes Absolute Auto 2.4 X10*3/uL (1.2-4.9); Lymphocytes Percent Auto 36.1 % (20-40); Mean Corpuscular HGB Conc 32.9 g/dl (31.0-35.0); Mean Corpuscular Hemoglobin 28.2 pg (27.0-33.0); Mean Corpuscular Volume 85.9 fL (80.0-98.0); Mean Platelet Volume 9.1 fL (9.4-12.3); Monocytes Absolute Auto 0.5 X10*3/uL (0.1-1.2); Monocytes Percent Auto 6.9 % (2-11); Neutrophils Absolute Auto 3.6 x10*3/uL (2.0-8.3); Neutrophils Percent Auto 54.5 % (45-73); Platelet Count 194 X10*3/uL (160-400); Red Blood Count 5.17 X10*6/uL (4.20-5.50); Red Cell Distribution Width 12.3 % (11.0-16.0); White Blood Count 6.7 X10*3/uL (4.8-10.8)
[2024-02-07 10:45] LABS: Estimated Average Glucose 120 mg/dL; Hemoglobin A1C 147.2877 umol/L; Hemoglobin A1c % 5.8 % (<6.0); Total Hemoglobin (HGBA1C) 3692.8401 umol/L
[2024-02-07 11:01] LABS: Alanine Aminotransferase 29 U/L (0-31); Albumin Level 4.1 g/dL (3.5-5.0); Alkaline Phosphatase 85 U/L (39-117); Anion Gap 12 (12-20); Aspartate Amino Transferase 23 U/L (5-31); Bilirubin Total 0.4 mg/dL (0.0-1.0); Blood Urea Nitrogen 20 mg/dL (9-16); Calcium 9.2 mg/dL (8.4-10.2); Carbon Dioxide 26 mmol/L (22-29); Chloride 109 mmol/L (96-108); Estimated Glomerular Filt Rate > 60; Glucose Fasting 108 mg/dL (60-99); Potassium 4.1 mmol/L (3.3-5.1); Sodium 143 mmol/L (135-145); Total Protein 6.8 g/dL (6.5-8.0)
[2024-02-07 11:19] LABS: Creatinine Urine 86.12 mg/dL; Microalbumin Urine < 5.0 mg/L
== END 2024-02-07 10:10 | disposition home or self-care (01) ==
LOC: HO.LAB 10:09
PROVIDERS: PCP Internal Medicine; Visit Provider Internal Medicine
DX: F41.9 Anxiety disorder, unspecified (principal); C54.1 Malignant neoplasm of endometrium; E11.9 Type 2 diabetes mellitus without complications; R93.3 Abnormal findings on diagnostic imaging of other parts of digestive tract
CPT/HCPCS: 36415; 80053; 82043; 82570; 83036; 85025

== ENCOUNTER 2024-02-11 12:04 | Outpatient (AMB) | payer OTHER, SELFPAY ==
[2024-02-11 12:38] VITALS: BP 126/76; PULSE 87; O2SAT 97; BMI 35.3
--- NOTE | 2024-02-11 12:38 | A.OFFPC_ITS ---
Vital Signs 02/11/24 12:38 Height 5 ft 6 in Weight 219 lb BMI 35.3 BP 126/76 Blood Pressure Location Lt brachial Position Sitting Pulse 87 Pulse Source Pulse Oximeter Pulse Oximetry (%) 97 Oxygen Delivery Method Room Air Intake Visit Reasons: Medication Review Intake Note: Pt is here today for her medication review Allergies erythromycin base Allergy (Unknown, Verified 02/11/24 12:38) Unknown hazelnut Allergy (Unknown, Verified 02/11/24 12:38) Unknown Sulfa (Sulfonamide Antibiotics) Allergy (Unknown, Verified 02/11/24 12:38) Unknown sulfamethoxazole [From Bactrim] Allergy (Unknown, Verified 02/11/24 12:38) Hives trimethoprim [From Bactrim] Allergy (Unknown, Verified 02/11/24 12:38) Hives Medication List - Last Reconciled 02/11/24 by Chata Romero MD citalopram 20 mg PO DAILY dulaglutide (Trulicity) 4.5 mg (0.5 mL) subcut QWEEK epinephrine (EpiPen 2-Trey) 0.3 mg (0.3 mL) IM Q10M PRN [fish oil 1000 mg daily] lorazepam 0.5 mg PO DAILY PRN Tobacco use date assessed: 02/11/24 Dental Screening Dental Screen Date: 02/11/24 Did you have a dental visit in the last 12 months?: Yes Did you have a dental problem in the last 6 months where you did not have access to dental care?: No Was dental information given to patient?: Patient has dentist HPI Medication Review HPI Details Pt presents for DM2,anxiety, stable on meds. Patient has been under lot of stress taking care of her aging parents. [facility] Medical History (Updated 02/11/24 @ 13:08 by Chata Romero MD) Gallbladder polyp Mammogram normal Abnormal colonoscopy Overweight Anxiety Annual physical exam Endometrial adenocarcinoma DM type 2 (diabetes mellitus, type 2) Surgical History History of surgery Family History Father Colon cancer Breast cancer Lung cancer Diabetes mellitus HTN (hypertension) Mother Diabetes mellitus HTN (hypertension) Social History Housing: House Alcohol intake: current Patient Tobacco Use Status: Former Tobacco user Years Smoked: quit 16 years ago e-Cigarette/Vaping Use: Never Used Second Hand Smoke Exposure: No service: No Current occupational status: employed Current occupation: formerly [employer] [place] Current occupational exposures/hazards: No Cognitive needs: No Hearing needs: No Vision needs: No Questionnaire PHQ-9 Over the last 2 weeks, how often have you been bothered by any of the following problems? 1. Little interest or pleasure in doing things: not at all 2. Feeling down, depressed, or hopeless: not at all 3. Trouble falling or staying asleep, or sleeping too much: not at all 4. Feeling tired or having little energy: not at all 5. Poor appetite or overeating: not at all 6. Feeling bad about yourself - or that you are a failure or have let yourself or your family down: not at all 7. Trouble concentrating on things, such as reading the newspaper or watching television: not at all 8. Moving or speaking so slowly that other people could have noticed. Or the opposite - being so fidgety or restless that you have been moving around a lot more than usual: not at all 9. Thoughts that you would be better off or of hurting yourself in some way: not at all Total score: 0 Depression Screening Interpretation: Negative Depression Screening Done: Yes 50512 - PHQ-9 Billing: Yes Source: Developed by Drs. Earnest Clayton, Joselyn Cedillo, Venu Shoemaker and colleagues, with an educational abdiaziz from [employer]. Thrive Questionnaire Date Thrive assessed: 04/30/23 I am a: Patient What is your living situation today?: I have a steady place to live Within the past 12 months, did the food you bought not last and you didn't have the money to get more?: Never true Within the past 12 months, did you worry whether your food would run out before you got money to buy more?: Never true Do you have trouble paying for medicines?: No Do you have trouble getting transportation to medical appointments?: No Do you have trouble paying your heating and electricity bill?: No Do you have trouble taking care of your child, family member or friend?: No Do you have trouble with day-to-day activities such as bathing, preparing meals, shopping, managing finances, etc.?: No Are you currently unemployed and looking for a job?: No Are you interested in more education?: No Please select the resources that you would like help with: None Currently or been in a relationship where the following occur: No concerns reported THRIVE Score: 0 AUDIT C Alcohol Use Questionnaire (AUDIT-C) 1. How often do you have a drink containing alcohol?: Monthly or less 2. How many drinks containing alcohol do you have on a typical day when you are drinking?: 1 or 2 3. How often do you have six or more drinks on one occasion?: Never Total Score: 1 PARTH-7 AMB Questionnaire PARTH-7 Date PARTH - 7 assessed: 04/30/23 Feeling nervous, anxious, or on edge: 0 = Not at all Not being able to stop or control worryin = Several days Worrying too much about different things: 1 = Several days Trouble relaxin = Several days Being so restless that it is hard to sit still: 0 = Not at all Becoming easily annoyed or irritable: 0 = Not at all Feeling afraid as if something awful might happen: 1 = Several days Total PARTH-7 score (0-4 normal; 5-9 mild; 10-14 moderate; 15-21 severe): 4 Source: Developed by Drs. Earnest Clayton, Joselyn Cedillo, Venu Shoemaker and colleagues, with an educational abdiaziz from [employer]. Review of Systems Const All systems reviewed & are unremarkable except as noted in HPI and below Eyes Reports no additional complaints ENT Reports no additional complaints Card Reports no additional complaints Resp Reports no additional complaints GI Reports no additional complaints Reports no additional complaints Physical exam (Primary Care) Vital Signs: Last Vital Signs Pulse 87 02/11/24 12:38 BP 126/76 02/11/24 12:38 Pulse Ox 97 02/11/24 12:38 Oxygen Delivery Method Room Air 02/11/24 12:38 BMI result Body Mass Index 35.3 Tobacco/Smoking Status: Tobacco use Status Tobacco use date assessed 02/11/24 02/11/24 12:42 Patient Tobacco Use Status Former Tobacco user 02/11/24 12:42 e-Cigarette/Vaping Use Never Used 02/11/24 12:42 PHQ-9: PHQ-9 Score PHQ-9: Total score 0 02/11/24 12:42 Depression Screening Interpretation: Negative Thrive Assessment: Date of Thrive Assessment Date Thrive assessed 04/30/23 02/11/24 12:42 Currently or been in a relationship where the following occur: No concerns reported Const General: no acute distress [facility] General nose exam: Normal external nose present Throat: Yes posterior oropharynx normal Resp Effort & Inspection: normal respiratory effort Auscultation: clear to auscultation bilaterally Cardio Rhythm: regular rhythm Heart sounds: S1 normal heart sound present and S2 normal heart sound present GI Inspection: Yes normal to inspection Palpation (GI): Soft to palpation Percussion: Yes normal to percussion Auscultation: normal bowel sounds Coding Level of Care Code Est Pt Level 4 (90340) Diagnoses DM type 2 (diabetes mellitus, type 2) E11.9 Annual physical exam Z00.00 Anxiety F41.9 Overweight E66.3 Abnormal colonoscopy R93.3 Additional Codes PHQ-9 - 48547 - PHQ-9 Billing: Yes ([id number]) Assessment & Plan Assessment & Plan (1) DM type 2 (diabetes mellitus, type 2): Code(s): E11.9 - Type 2 diabetes mellitus without complications Category: Medical Plan: A1c is 5.8. Increase Trulicity to 4.5 mg continue ADA diet increase physical activity follow-up in 4 months (2) Annual physical exam: Code(s): Z00.00 - Encounter for general adult medical examination without abnormal findings Category: Medical Plan: Return for physical in 4 months (3) Anxiety: Code(s): F41.9 - Anxiety disorder, unspecified Category: Medical Plan: Continue citalopram (4) Overweight: Code(s): E66.3 - Overweight Category: Medical Plan: Increase physical activity decrease caloric intake weight loss discussed with the patient (5) Abnormal colonoscopy: Comment: 03/2018 1 polyp , rechecked 08/31 FHx of colon ca, Code(s): R93.3 - Abnormal findings on diagnostic imaging of other parts of digestive tract Category: Medical Plan: f/u with GI Orders: Orders Hemoglobin A1c 4 Months E11.9 - Type 2 diabetes mellitus without complications, F41.9 - Anxiety disorder, unspecified, Z00.00 - Encounter for general adult medical examination without abnormal findings Complete Blood Count Auto Diff 4 Months E11.9 - Type 2 diabetes mellitus without complications, F41.9 - Anxiety disorder, unspecified, Z00.00 - Encounter for general adult medical examination without abnormal findings Microalbumin, Random (w Creat) 4 Months E11.9 - Type 2 diabetes mellitus without complications, F41.9 - Anxiety disorder, unspecified, Z00.00 - Encounter for general adult medical examination without abnormal findings Comprehensive [place]. Panel Fast 4 Months E11.9 - Type 2 diabetes mellitus without complications, F41.9 - Anxiety disorder, unspecified, Z00.00 - Encounter for general adult medical examination without abnormal findings TSH reflex Free T4 4 Months E11.9 - Type 2 diabetes mellitus without complications, F41.9 - Anxiety disorder, unspecified, Z00.00 - Encounter for general adult medical examination without abnormal findings Lipid Panel 4 Months E11.9 - Type 2 diabetes mellitus without complications, F41.9 - Anxiety disorder, unspecified, Z00.00 - Encounter for general adult medical examination without abnormal findings Medications: New dulaglutide (Trulicity) 4.5 mg (0.5 mL) subcut QWEEK 6 mL 1RF Discontinued dulaglutide (Trulicity) Discontinued Reason: Doctor's Order 3 mg (0.5 mL) subcut QWEEK 2 mL 3RF
== END 2024-02-11 13:09 | disposition home or self-care (01) ==
PROVIDERS: PCP Internal Medicine; Visit Provider Internal Medicine
DX: E11.9 Type 2 diabetes mellitus without complications (principal); Z00.00 Encounter for general adult medical examination without abnormal findings; F41.9 Anxiety disorder, unspecified; E66.3 Overweight; R93.3 Abnormal findings on diagnostic imaging of other parts of digestive tract

== ENCOUNTER → 2024-02-11 12:04 | Outpatient (BNVA) | payer OTHER, SELFPAY | PROVIDERS: PCP Internal Medicine; Visit Provider Internal Medicine | DX: E11.9 Type 2 diabetes mellitus without complications (principal); F41.9 Anxiety disorder, unspecified; E66.3 Overweight; R93.3 Abnormal findings on diagnostic imaging of other parts of digestive tract; Z79.899 Other long term (current) drug therapy | CPT/HCPCS: 96127 ==

== ENCOUNTER 2024-08-06 10:48 | Outpatient (REF) | payer BC, SELFPAY ==
--- OUTSIDE RECORDS SUMMARY | 2024-08-06 11:37 | XMS_ITS ---
Author Name [facility] Organization Unknown Encounters Encounter Type Encounter Reason Primary Diagnosis Location Date Ambulatory [facility] 05/01/2021 Care Team Organization Name Specialty Phone Email Start Date End Da te [facility] PCP,No Primary Care 05/01/2021 10/27/2023 [facility] NO PCP Primary Care 05/01/2021 05/01/2021
[2024-08-06 13:19] LABS: MANUAL DIFF FLAG NO
[2024-08-06 13:27] LABS: Basophils Percent Auto 0.6 % (0-2); Eosinophils Absolute Auto 0.1 X10*3/uL (0.0-0.4); Eosinophils Percent Auto 1.4 % (0-4); Hematocrit 44.8 % (37.0-47.0); Imm Gran Abs Auto 0.02 X10*3/uL (0.00-0.03); Imm Gran Pct Auto 0.3 % (0.0-0.4); Mean Corpuscular HGB Conc 33.5 g/dl (31.0-35.0); Mean Corpuscular Hemoglobin 28.8 pg (27.0-33.0); Mean Platelet Volume 9.8 fL (9.4-12.3); Monocytes Absolute Auto 0.5 X10*3/uL (0.1-1.2); Monocytes Percent Auto 7.5 % (2-11); Neutrophils Absolute Auto 3.7 x10*3/uL (2.0-8.3); Neutrophils Percent Auto 59.2 % (45-73); Platelet Count 222 X10*3/uL (160-400); Red Blood Count 5.21 X10*6/uL (4.20-5.50); Red Cell Distribution Width 12.3 % (11.0-16.0); White Blood Count 6.3 X10*3/uL (4.8-10.8)
[2024-08-06 13:47] LABS: Estimated Average Glucose 128 mg/dL; Hemoglobin A1c % 6.1 % (<6.0)
[2024-08-06 13:58] LABS: Alanine Aminotransferase 34 U/L (0-31); Albumin Level 4.4 g/dL (3.5-5.0); Alkaline Phosphatase 75 U/L (39-117); Anion Gap 10 (12-20); Aspartate Amino Transferase 27 U/L (5-31); Bilirubin Total 0.6 mg/dL (0.0-1.0); Blood Urea Nitrogen 22 mg/dL (9-16); Calcium 9.5 mg/dL (8.4-10.2); Carbon Dioxide 27 mmol/L (22-29); Chloride 109 mmol/L (96-108); Cholesterol 194 mg/dL (<200); Estimated Glomerular Filt Rate > 60; Glucose Fasting 127 mg/dL (60-99); HDL Cholesterol 48 mg/dL (>40); LDL Cholesterol Calculated 116 mg/dL (<100); Potassium 4.2 mmol/L (3.3-5.1); Sodium 142 mmol/L (135-145); Total Protein 7.2 g/dL (6.5-8.0); Triglycerides 154 mg/dL (<150)
[2024-08-06 14:20] LABS: TSH reflex Free T4 0.79 uIU/mL (0.32-4.0)
[2024-08-06 14:32] LABS: Creatinine Urine 104.76 mg/dL; Microalbum/Creatinine Ratio Ur 4.7 ug/mg cr (<30)
[2024-08-09 15:24] LABS: Lyme Abs Screen <0.90 index
== END 2024-08-06 10:49 | disposition home or self-care (01) ==
LOC: HO.10HDL 10:48
PROVIDERS: Visit Provider Internal Medicine
DX: Z00.00 Encounter for general adult medical examination without abnormal findings (principal); T14.8XXA Other injury of unspecified body region, initial encounter; W57.XXXA Bitten or stung by nonvenomous insect and other nonvenomous arthropods, initial encounter; E11.9 Type 2 diabetes mellitus without complications; F41.9 Anxiety disorder, unspecified
CPT/HCPCS: 36415; 80053; 80061; 82043; 82570; 83036; 84443; 85025; 86617; 86618

== ENCOUNTER 2024-09-13 12:23 | Outpatient (AMB) | payer BC, SELFPAY ==
--- NOTE | 2024-09-13 12:38 | A.OFFPC_ITS ---
Vital Signs 09/13/24 12:40 Height 5 ft 6 in Weight 228 lb BMI 36.8 BP 122/62 Blood Pressure Location Lt brachial Position Sitting Respiration 18 Pulse 61 Pulse Source Pulse Oximeter Temp 97.9 F Temp Source Oral Pulse Oximetry (%) 98 Oxygen Delivery Method Room Air Intake Visit Reasons: Rescheduled follow up Intake Note: Pt is here today for a follow up visit. Allergies erythromycin base Allergy (Unknown, Verified 09/13/24 12:41) Unknown hazelnut Allergy (Unknown, Verified 09/13/24 12:41) Unknown Sulfa (Sulfonamide Antibiotics) Allergy (Unknown, Verified 09/13/24 12:41) Unknown sulfamethoxazole (From Bactrim) Allergy (Unknown, Verified 09/13/24 12:41) Hives trimethoprim (From Bactrim) Allergy (Unknown, Verified 09/13/24 12:41) Hives Medication List - Last Reconciled 09/13/24 by Chata Romero MD citalopram 20 mg PO DAILY epinephrine (EpiPen 2-Trey) 0.3 mg (0.3 mL) IM Q10M PRN [fish oil 1000 mg daily] lorazepam 0.5 mg PO DAILY PRN Tobacco use date assessed: 09/13/24 Dental Screening Dental Screen Date: 09/13/24 Did you have a dental visit in the last 12 months?: Yes Did you have a dental problem in the last 6 months where you did not have access to dental care?: No Was dental information given to patient?: Patient has dentist HPI Rescheduled follow up HPI Details Pt presents for f/u anxiety, stable on Citalopram. Patient used to take trilogy but her insurance stopped covering. She has been decreasing caloric intake, increasing physical activity for over 6 months trying to lose weight unsuccessfully. Patient would like to try GLP 1 agonist to facilitate weight loss [facility] Medical History (Updated 09/13/24 @ 15:14 by Chata Romero MD) Gallbladder polyp Mammogram normal Abnormal colonoscopy Overweight Anxiety Annual physical exam Endometrial adenocarcinoma DM type 2 (diabetes mellitus, type 2) Surgical History History of surgery Family History Father Colon cancer Breast cancer Lung cancer Diabetes mellitus HTN (hypertension) Mother Diabetes mellitus HTN (hypertension) Social History Housing: House Alcohol intake: current Patient Tobacco Use Status: Former Tobacco user Years Smoked: quit 16 years ago e-Cigarette/Vaping Use: Never Used Second Hand Smoke Exposure: No service: No Current occupational status: employed Current occupation: [employer] Current occupational exposures/hazards: No Cognitive needs: No Hearing needs: No Vision needs: No Questionnaire PHQ-9 Over the last 2 weeks, how often have you been bothered by any of the following problems? 1. Little interest or pleasure in doing things: not at all 2. Feeling down, depressed, or hopeless: not at all 3. Trouble falling or staying asleep, or sleeping too much: not at all 4. Feeling tired or having little energy: not at all 5. Poor appetite or overeating: nearly every day 6. Feeling bad about yourself - or that you are a failure or have let yourself or your family down: not at all 7. Trouble concentrating on things, such as reading the newspaper or watching television: not at all 8. Moving or speaking so slowly that other people could have noticed. Or the opposite - being so fidgety or restless that you have been moving around a lot more than usual: not at all 9. Thoughts that you would be better off or of hurting yourself in some way: not at all Total score: 3 Depression Screening Interpretation: Negative Depression Screening Done: Yes 50954 - PHQ-9 Billing: Yes Source: Developed by Drs. Earnest Clayton, Joselyn Cedillo, Venu Shoemaker and colleagues, with an educational abdiaziz from [employer]. Thrive Questionnaire Date Thrive assessed: 09/13/24 I am a: Patient What is your living situation today?: I have a steady place to live Within the past 12 months, did the food you bought not last and you didn't have the money to get more?: Never true Within the past 12 months, did you worry whether your food would run out before you got money to buy more?: Never true Do you have trouble paying for medicines?: No Do you have trouble getting transportation to medical appointments?: No Do you have trouble paying your heating and electricity bill?: No Do you have trouble taking care of your child, family member or friend?: No Do you have trouble with day-to-day activities such as bathing, preparing meals, shopping, managing finances, etc.?: No Are you currently unemployed and looking for a job?: No Are you interested in more education?: No Please select the resources that you would like help with: None Currently or been in a relationship where the following occur: No concerns reported THRIVE Score: 0 AUDIT C Alcohol Use Questionnaire (AUDIT-C) 1. How often do you have a drink containing alcohol?: Monthly or less 2. How many drinks containing alcohol do you have on a typical day when you are drinking?: 1 or 2 3. How often do you have six or more drinks on one occasion?: Never Total Score: 1 PARTH-7 AMB Questionnaire PARTH-7 Date PARTH - 7 assessed: 09/13/24 Feeling nervous, anxious, or on edge: 0 = Not at all Not being able to stop or control worryin = Several days Worrying too much about different things: 1 = Several days Trouble relaxin = Several days Being so restless that it is hard to sit still: 0 = Not at all Becoming easily annoyed or irritable: 0 = Not at all Feeling afraid as if something awful might happen: 1 = Several days Total PARTH-7 score (0-4 normal; 5-9 mild; 10-14 moderate; 15-21 severe): 4 Source: Developed by Drs. Earnest Clayton, Joselyn Cedillo, Venu Shoemaker and colleagues, with an educational abdiaziz from [employer]. PARTH-7 Assessment Billing PARTH-7 Assessment Tool: PARTH-7 Assessment 31247 Physical exam (Primary Care) Vital Signs: Last Vital Signs Temp 97.9 F 09/13/24 12:40 Pulse 61 09/13/24 12:40 Resp 18 09/13/24 12:40 BP 122/62 09/13/24 12:40 Pulse Ox 98 09/13/24 12:40 Oxygen Delivery Method Room Air 09/13/24 12:40 BMI result Body Mass Index 36.8 Tobacco/Smoking Status: Tobacco use Status Tobacco use date assessed 09/13/24 09/13/24 12:45 Patient Tobacco Use Status Former Tobacco user 09/13/24 12:45 e-Cigarette/Vaping Use Never Used 09/13/24 12:38 PHQ-9: PHQ-9 Score PHQ-9: Total score 3 09/13/24 13:29 Depression Screening Interpretation: Negative Thrive Assessment: Date of Thrive Assessment Date Thrive assessed 09/13/24 09/13/24 12:53 Currently or been in a relationship where the following occur: No concerns reported Const General: no acute distress HENMT Head: Yes normal to inspection Face and sinus: Yes normal facial exam Eyes General: appearance normal, both eyes and all related structures Neck Neck: Yes no lymphadenopathy and Yes supple Resp Effort & Inspection: normal respiratory effort Auscultation: clear to auscultation bilaterally Cardio Rhythm: regular rhythm Heart sounds: S1 normal heart sound present and S2 normal heart sound present GI Inspection: Yes normal to inspection Palpation (GI): Soft to palpation Percussion: Yes normal to percussion Auscultation: normal bowel sounds Coding Level of Care Code Est Pt Level 4 (93952) Diagnoses DM type 2 (diabetes mellitus, type 2) E11.9 Overweight E66.3 Anxiety F41.9 Additional Codes PARTH-7 Assessment Billing - PARTH-7 Assessment Tool: PARTH-7 Assessment 42202 ([id number]) PHQ-9 - 00456 - PHQ-9 Billing: Yes ([id number]) Assessment & Plan Assessment & Plan (1) DM type 2 (diabetes mellitus, type 2): Comment: Diet controlled, A1c is 6.07 September 2024 Code(s): E11.9 - Type 2 diabetes mellitus without complications Category: Medical Plan: ADA diet eating increase physical activity weight loss discussed with the patient (2) Overweight: Comment: BMI of 36.8 09/2024 Code(s): E66.3 - Overweight Category: Medical Plan: Decreasing caloric intake increasing physical activity weight loss discussed with the patient. She will check with her insurance coverage for GLP 1 agonist. If she start medication she will follow-up in 3 months to monitor weight loss (3) Anxiety: Code(s): F41.9 - Anxiety disorder, unspecified Category: Medical Plan: Continue citalopram Orders: Orders TSH reflex Free T4 6 Months E11.9 - Type 2 diabetes mellitus without complications, E66.3 - Overweight, Z00.00 - Encounter for general adult medical examination without abnormal findings Hemoglobin A1c 6 Months E11.9 - Type 2 diabetes mellitus without complications, E66.3 - Overweight, Z00.00 - Encounter for general adult medical examination without abnormal findings Vitamin D 25-OH Total 6 Months E11.9 - Type 2 diabetes mellitus without complications, E66.3 - Overweight, Z00.00 - Encounter for general adult medical examination without abnormal findings Comprehensive [place]. Panel Fast 6 Months E11.9 - Type 2 diabetes mellitus without complications, E66.3 - Overweight, Z00.00 - Encounter for general adult medical examination without abnormal findings Complete Blood Count Auto Diff 6 Months E11.9 - Type 2 diabetes mellitus without complications, E66.3 - Overweight, Z00.00 - Encounter for general adult medical examination without abnormal findings Lipid Panel 6 Months E11.9 - Type 2 diabetes mellitus without complications, E66.3 - Overweight, Z00.00 - Encounter for general adult medical examination without abnormal findings
[2024-09-13 12:40] VITALS: BP 122/62; PULSE 61; RESP 18; TEMP 36.6; O2SAT 98; BMI 36.8
--- OUTSIDE RECORDS SUMMARY | 2024-09-13 13:03 | XMS_ITS | Clinical Summary ---
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 Role Phone Pcp, No Primary Care Provider Unavailabl e Social History Tobacco Use Types Packs/Day Years Used Date Smoking Tobacco: Never Assessed Comments Unknown Sex and Gender Information Value Date Recorded Sex Assigned at Not on file Legal Sex Female 6:17 PM EST Gender Identity Not on file Sexual Orientation Not on file Plan of Treatment Health Maintenance Due Date Last Done Comments Hepatitis C Virus Screening 1965 HIV Screening 12/02/1976 DTaP/Tdap/Td Vaccines (1 - Tdap) 12/02/1982 Pap Smear (Ages 21-65) 12/02/1984 Mammogram 2003 Colonoscopy 12/02/2008 Pneumococcal Vaccines 50+ (1 of 1 - PCV) 12/02/2013 Zoster (Shingles) Vaccine (1 of 2) 12/02/2013 COVID-19 Vaccine (3 - 2023-2 5 season) 2023 04/25/2020, 03/06/2020 Influenza Vaccine 10/08/2024 12/21/2018 RSV Vaccine 60 years and older and Patients (1 - 1-dose 75+ series) 12/02/2038 Hepatitis B Vaccines Aged Out No long er eligible based on patient's age to complete this topic Insurance 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
--- OUTSIDE RECORDS SUMMARY | 2024-09-13 13:03 | XMS_ITS | Clinical Summary ---
Author Organization 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 Name Role Phone Unavailable Primary Care Provider Unavailabl e Medications No known medications Active Problems No known active problems Social History Tobacco Use Types Packs/Day Years Used Date Smoking Tobacco: Never Assessed Sex and Gender Information Value Date Recorded Sex Assigned at Not on file Gender Identity Not on file Sexual Orientation Not on file Job Start Date Occupation Industry Not on file Not on file Not on file Last Filed Vital Signs Vital Sign Reading Time Taken Comments Blood Pressure - - Pulse 77 03/01/2021 2:07 PM EST Temperature 35.9 C (96.7 F) 03/01/2021 2:07 PM EST Respiratory Rate 98 03/01/2021 2:07 PM EST Oxygen Saturation 97% 11/20/2020 2:48 PM EDT Inhaled Oxygen Concentration - - Weight - - Height - - Body Mass Index - - Plan of Treatment Health Maintenance Due Date Last Done Comments Hepatitis C Screening 1965 COVID-19 Vaccine (#1) 06/01/1964 Depression Screening 1975 Preventative Health Evaluation 12/02/1981 DTap / Tdap / Td (1 - Tdap) 12/02/1982 Cervical Cancer Screening (P ap Smear) 12/02/1984 Colon Cancer Screening (Colonoscopy) 12/02/2008 Breast Cancer Screening (Mammogram) 12/02/2013 Shingrix-Zoster Vaccine (1 of 2) 12/02/2013 Influenza Vaccine (#1) 2024 12/21/2018 RSV Adult > 60+ Yrs or Pregn ant (1 - 1-dose 75+ series) 12/02/2038 Hepatitis B Vaccines Aged Out No long er eligible based on patient's age to complete this topic Pneumococcal Vaccine Aged Out No long er eligible based on patient's age to complete this topic RSV Ped < 20 months Aged Out No longe r eligible based on patient's age to complete this topic Robyn Randle Personal/Family Self 1965 [address] [place] [address]
--- OUTSIDE RECORDS SUMMARY | 2024-09-13 13:03 | XMS_ITS ---
Author Name [facility] Organization Unknown Encounters Encounter Type Encounter Reason Primary Diagnosis Location Date Ambulatory [facility] 05/01/2021 Care Team Organization Name Specialty Phone Email Start Date End Da te [facility] PCP,No Primary Care 05/01/2021 10/27/2023 [facility] NO PCP Primary Care 05/01/2021 05/01/2021
== END 2024-09-13 13:44 | disposition home or self-care (01) ==
LOC: HO.HMCC 12:24
PROVIDERS: PCP Internal Medicine; Visit Provider Internal Medicine
DX: E11.9 Type 2 diabetes mellitus without complications (principal); E66.3 Overweight; F41.9 Anxiety disorder, unspecified

== ENCOUNTER → 2024-09-13 12:23 | Outpatient (BNVA) | payer BC, SELFPAY | PROVIDERS: PCP Internal Medicine; Visit Provider Internal Medicine | DX: E66.3 Overweight (principal); F41.9 Anxiety disorder, unspecified; E11.9 Type 2 diabetes mellitus without complications; Z68.36 Body mass index [BMI] 36.0-36.9, adult | CPT/HCPCS: 96127 ==

== ENCOUNTER 2024-12-18 07:51 | Outpatient (REF) | payer BC, SELFPAY ==
--- OUTSIDE RECORDS SUMMARY | 2024-12-18 07:52 | XMS_ITS | Encounter Summary ---
Author Organization [facility] Address [address] [place] [address] Phone Care Team Providers Care Production Assistant Name Role Phone Chata Romero MD Primary Care Provider [phone] Encounter Details Date Type Department Care Team (Late st Contact Info) Description 12/18/2022 Procedure Pass [facility] Endoscopy Admitting Dept Virtual Department [address] [place] [address] Social History Tobacco Use Types Packs/Day Years Used Date Smoking Tobacco: Former Cigarettes 1.5 20 1 986 - 2006 Smokeless Tobacco: Never Alcohol Use Standard Drinks/Week Comments Yes 0 (1 standard drink = 0.6 oz pur e alcohol) 2x weekly Education Answer Date Recorded Are you interested in more education? Not on ebar e 07/05/2022 Are you concerned about learning? Not on file 07/05/2022 No 07/05/2022 No 07/05/2022 Digital Access Answer Date Recorded No 08/03/2022 No 08/03/2022 Reliable internet access at home? Not on file 08/03/2022 Device with a working camera? Not on file Comments No Sex and Gender Information Value Date Recorded Sex Assigned at Not on file Legal Sex Female 11:14 AM EST Gender Identity Not on file Sexual Orientation Not on file documented as of this encounter Plan of Treatment Not on file documented as of this encounter Visit Diagnoses Not on filedocumented in this encounter Care Teams Production Assistant Relationship Specialty Start Date End Date Chata Romero MD [address] [place] [address] PCP - General Internal Medicine 03/13/18 documented as of this encounter Additional Source Comments The information contained in this document represents components of the legal health record. It is not the complete legal health record.[facility]
--- OUTSIDE RECORDS SUMMARY | 2024-12-18 07:52 | XMS_ITS | Encounter Summary ---
Author Organization [facility] Address [address] [place] [address] Phone Care Team Providers Care Mat Worker Name Role Phone Chata Romero MD Primary Care Provider [phone] Encounter Details Date Type Department Care Team (Late st Contact Info) Description 08/20/2023 Procedure Pass [facility] Endoscopy Admitting Dept Virtual Department [address] [place] [address] Social History Tobacco Use Types Packs/Day Years Used Date Smoking Tobacco: Former Cigarettes 1.5 20 1 986 - 2006 Smokeless Tobacco: Never Alcohol Use Standard Drinks/Week Comments Yes 0 (1 standard drink = 0.6 oz pur e alcohol) on occasion Education Answer Date Recorded Are you interested in more education? Not on bear e 07/05/2022 Are you concerned about learning? Not on file 07/05/2022 No 07/05/2022 No 07/05/2022 Digital Access Answer Date Recorded No 08/03/2022 No 08/03/2022 Reliable internet access at home? Not on file 08/03/2022 Device with a working camera? Not on file Intimate Partner Violence Answer Date R ecorded Are you denied basic needs s uch as food, clothing, or medical care? No 08/20/2023 In the past 12 months have y ou been in a relationship with a person who hurts, threatens, or tries to control you? No 08/20/2023 Are you denied basic needs s uch as food, clothing, or medical care? No 08/20/2023 In the past 12 months have y ou been in a relationship with a person who hurts, threatens, or tries to control you? No 08/20/2023 Comments No Sex and Gender Information Value Date Recorded Sex Assigned at Not on file Legal Sex Female 11:14 AM EST Gender Identity Not on file Sexual Orientation Not on file documented as of this encounter Plan of Treatment Not on file documented as of this encounter Visit Diagnoses Not on filedocumented in this encounter Care Teams Mat Worker Relationship Specialty Start Date End Date Chata Romero MD [facility] [place] [address] PCP - General Internal Medicine 03/13/18 documented as of this encounter Additional Source Comments The information contained in this document represents components of the legal health record. It is not the complete legal health record.[facility]
--- OUTSIDE RECORDS SUMMARY | 2024-12-18 07:53 | XMS_ITS | Clinical Summary ---
Author Organization [facility] Address [address] [place] [address] Phone Care Team Providers Care Functional Skills Tutor Name Role Phone Chata Romero MD Primary Care Provider [phone] Allergies Active Allergy Reactions Criticality Noted Date Comments Sulfamethoxazole-Trimethoprim Hives 2018 Erythromycin GI Upset 03/13/2018 Hazelnut Anaphylaxis High 03/13/2018 Medications citalopram (CELEXA) 20 MG tablet Take 20 mg by mouth daily. Active metFORMIN (GLUCOPHAGE-XR) 750 MG 24 hr tablet Take 750 mg by mouth every morning. 11/18/19 23 Active TRULICITY 1.5 mg/0.5 mL subcutaneous injection INJECT 0.5 ML (1.5 MG) SUBCUTANEOUSLY ONE TIME PER WEEK 10/23/19 23 Active omeprazole (PRILOSEC) 20 MG capsule Take 20 mg by mouth daily. Active omega-3 fatty acids-fish oil 340-1,000 mg Cap Take by mouth daily. Active LORazepam (ATIVAN) 0.5 MG tablet Take 0.5 mg by mouth every 6 (six) hours as needed for anxiety. Active TRULICITY 3 mg/0.5 mL subcutaneous injection INJECT 3 MG (0.5 ML) SUBCUTANEOUSLY EVERY WEEK 06/16/19 24 Active Social History Tobacco Use Types Packs/Day Years Used Date Smoking Tobacco: Former Cigarettes 1.5 20 1 986 - 2005 Smokeless Tobacco: Never Tobacco Cessation:Counseling Given: Not Answered Alcohol Use Standard Drinks/Week Comments Yes 0 [...] on file Sexual Orientation Not on file Last Filed Vital Signs Vital Sign Reading Time Taken Comments Blood Pressure 112/76 08/20/2023 9:05 AM EDT Pulse 85 08/20/2023 9:05 AM EDT Temperature 36.1 C (97 F) 08/20/2023 8:50 AM EDT Respiratory Rate 13 08/20/2023 9:05 AM EDT Oxygen Saturation 96% 08/20/2023 9:05 AM EDT Inhaled Oxygen Concentration - - Weight 94.8 kg (209 lb) 08/19/2023 10:05 AM EDT Height 170.2 cm (5' 7 ) 08/19/2023 10:05 AM EDT Body Mass Index 32.73 08/19/2023 10:05 AM EDT Plan of Treatment Health Maintenance Due Date Last Done Comments Adult Td,Tdap Booster 1965 CREATININE LEVEL 1965 LIPID PANEL 1965 DEPRESSION SCREENING 1975 SMOKING Hx and SMOKELESS TOBACCO SCREENING 12/02/1976 HEPATITIS C SCREENING 12/02/1981 HIV ONE-TIME SCREENING (18-65 YEARS) 12/02/1981 PAP SMEAR 12/02/1984 SCREENING FOR DIABETES 12/02/1998 MAMMOGRAM 2003 COLOGUARD 12/02/2008 FIT TEST 12/02/2008 FOBT 12/02/2008 SIGMOIDOSCOPY 12/02/2008 VIRTUAL COLONOSCOPY 12/02/2008 PNEUMOCOCCAL VACCINES (50+ years) (1 of 1 - PCV) 12/02/2013 INFLUENZA VACCINE (#1) 2024 3, 11/24/2019, 12/21/2018, Additional history exists COVID-19 VACCINE (3 - season) 2024 04/20/2021, 04/25/2020 COLONOSCOPY 08/19/2033 08/20/2023, 03/13/2018 COLORECTAL CANCER SCREENING 08/19/2033 RSV VACCINE (1 - 1-dose 75+ series) 12/02/2038 ZOSTER VACCINES Completed 08/31/2019, 04/24/2019 HEPATITIS A VACCINES Aged Out No long er eligible based on patient's age to complete this topic HIB VACCINES Aged Out No longer eligi ble based on patient's age to complete this topic MENINGOCOCCAL VACCINES (ACWY) Aged Out No longer eligible based on patient's age to complete this topic MENINGOCOCCAL VACCINES (B) Aged Out N o longer eligible based on patient's age to complete this topic Medical Devices Implanted Type Area Special Distribution Clerk Device Identifier Shelf Expiration Date Model / Serial / Lot Breast Clips Toes Procedures Procedure Name Priority Date/Time Associated Diagnosis Comments ENDOSCOPY, COLON 08/20/2023 8:26 AM EDT from Last 3 Months or Most Recently Relevant to Health Maintenance Results * ENDOSCOPY, COLON (08/20/2023 8:26 AM EDT) Narrative Transcriptions Casandra Barker MD - 08/20/2023 8:26 AM EDT [facility] Patient Name: Robyn Randle Attending MD:: CASANDRA BARKER MD, Procedure Date: 08/20/2023 8:26 AM Date of : 1965 Age: 57 Admit Type: Outpatient Gender: Female Room: [facility] Referring MD: Chata Romero MD Exam Type: Colonoscopy Indications: Screening in patient at increased risk: Colorectal cancer in mother 60 or older, Surveillance:Personal history of adenomatous polyps on last colonoscopy >5 years ago, Last colonoscopy: March 2018 Medications: Monitored Anesthesia Care Procedure: Informed consent was obtained from the patientafter discussion of the indications, limitations, alternatives, benefits, and risks of the procedure. Risks specifically discussed include but are not limited to medication reactions, missed lesions, bleeding, perforation, or the need for emergent surgery. Throughout the procedure, the patient's blood pressure, pulse, end-tidal CO2, and oxygensaturations were monitored continuously. The Olympus adult variable colonoscope [id number] #[id number] was introduced through the anus and advanced to the cecum, identified by appendiceal orifice andileocecal valve. The colonoscopy was technically difficultand complex due to a redundant colon, significantlooping, a tortuous colon and the patient's body habitus. Successful completion of the procedure was aided by applying abdominal pressure. The patient toleratedthe procedure fairly well. The quality of the bowel preparation was good. Complications: No immediate complications. Estimated blood loss: Minimal. Findings: The perianal and digital rectal examinations were normal. Pertinent negatives include normalsphincter tone. Two sessile polyps were found in the distal sigmoid colon and at 20 cm proximal to the anus. The polyps were 4 to 6 mm in size. These polyps were removedwith a cold snare. Resection and retrieval werecomplete. Estimated blood loss was minimal. A few diverticula were found in the descendingcolon. The colon (entire examined portion) was moderately redundant. Non-bleeding hemorrhoids were found during retroflexion. The hemorrhoids were small. The exam was otherwise without abnormality ondirect and retroflexion views. Impression: - Two 4 to 6 mm polyps in the distal sigmoid colonand at 20 cm proximal to the anus, removed with a cold snare. Resected and retrieved. - Diverticulosis in the descending colon. - Redundant colon. - Non-bleeding hemorrhoids. - The examination was otherwise normal on directand retroflexion views. Recommendation: - I will send results of your biopsy to you andyour referring physician or provider. If you do notreceive notification within 3 weeks, please call ouroffice. - Repeat colonoscopy in 5 years for surveillancebased on pathology results. - Continue present medications. CASANDRA BARKER MD 08/20/2023 8:50:17 AM This report has been signed electronically. Number of Addenda: 0 Note Initiated On: 08/20/2023 8:26 AM Procedure Code(s): --- Professional --- 25303, Colonoscopy, flexible; with removal of tumor(s), polyp(s), or other lesion(s) by snare technique --- Technical --- 40812, Colonoscopy, flexible; with removal of tumor(s), polyp(s), or other lesion(s) by snare technique Diagnosis Code(s): --- Professional --- Z80.0, Family history of malignant neoplasm of digestive organs Z86.010, Personal history of colonic polyps D12.5, Benign neoplasm of sigmoid colon K64.9, Unspecified hemorrhoids K57.30, Diverticulosis of large intestine without perforation or abscess without bleeding Q43.8, Other specified congenital malformations of intestine --- Technical --- Z80.0, Family history of malignant neoplasm of digestive organs Z86.010, Personal history of colonic polyps D12.5, Benign neoplasm of sigmoid colon K64.9, Unspecified hemorrhoids K57.30, Diverticulosis of large intestine without perforation or abscess without bleeding Q43.8, Other specified congenital malformations of intestine CPT copyright 2021 [employer]. All rights reserved. The codes documented in this report are preliminary and upon pharmacy intern reviewmay be revised to meet current compliance requirements. Procedure Date: 08/20/2023 8:26:47 AM [address] [place] [address] Chata Romero MD GI PROCEDURE ORDERABLES Final Result from Last 3 Months or Most Recently Relevant to Health Maintenance Insurance [address] [place], [place] [address]O [place] [address] [place], [place] [address] [address] [place], [place] [address] [facility]PO [facility] POS EPO [facility] E[facility] Care Teams Functional Skills Tutor Relationship Specialty Start Date End Date Chata Romero MD [address] [place] [address] PCP - General Internal Medicine 03/13/18 Additional Source Comments The information contained in this document represents components of the legal health record. It is not the complete legal health record.[facility]
--- OUTSIDE RECORDS SUMMARY | 2024-12-18 07:53 | XMS_ITS | Clinical Summary ---
Author Organization [facility] Address [address] [place] [address] Care Team Providers Care Warp Coiler Name Role Phone Unavailable Primary Care Provider [...] Personal/Family Self 1965 [address] [place] [address]
--- OUTSIDE RECORDS SUMMARY | 2024-12-18 07:53 | XMS_ITS | Clinical Summary ---
Author Organization [facility] Address [address] [place] [address] Care Team Providers Care Exhibit Designer Name Role Phone Pcp, No Primary Care [...] Zoster (Shingles) Vaccine (1 of 2) 12/02/2013 Influenza Vaccine 10/08/2024 12/21/2018 COVID-19 Vaccine (3 - 2024-2 6 season) 2024 04/25/2020, 03/06/2020 RSV Vaccine 60 years and older and Patients (1 - 1-dose 75+ series) 12/02/2038 Hepatitis B Vaccines Aged Out No long er eligible based on patient's age to complete this topic Insurance [facility] [employer] Care Teams Exhibit Designer Relationship Specialty Start Date End Date Pcp, No PCP - General General Medicine 08/11/20
--- OUTSIDE RECORDS SUMMARY | 2024-12-18 07:53 | XMS_ITS | Encounter Summary ---
Author Organization [facility] Address [address] [place] [address] Phone Care Team Providers Care Coding Quality Coordinator Name Role Phone Chata Romero MD Primary Care Provider [phone] Encounter Details Date Type Department Care Team (Late st Contact Info) Description 03/13/2018 Procedure Pass [facility] Endoscopy Admitting Dept Virtual Department [address] [place] [address] Social History Tobacco Use Types Packs/Day Years Used Date Smoking Tobacco: Former Smokeless Tobacco: Never Comments:quit 13 years ago Alcohol Use Standard Drinks/Week Comments Yes 0 (1 standard drink = 0.6 oz pur e alcohol) 5 drinks weekly Comments Unknown Sex and Gender Information Value Date Recorded Sex Assigned at Not on file Legal Sex Female 11:14 AM EST Gender Identity Not on file Sexual Orientation Not on file documented as of this encounter Plan of Treatment Not on file documented as of this encounter Visit Diagnoses Not on filedocumented in this encounter Care Teams Coding Quality Coordinator Relationship Specialty Start Date End Date Chata Romero MD [facility] [place] [address] PCP - General Internal Medicine 03/13/18 documented as of this encounter Additional Source Comments The information contained in this document represents components of the legal health record. It is not the complete legal health record.[facility]
[2024-12-18 08:00] LABS: MANUAL DIFF FLAG NO
[2024-12-18 08:13] LABS: Hematocrit 43.9 % (37.0-47.0); Hemoglobin 14.2 g/dl (12.0-16.0); Imm Gran Abs Auto 0.03 X10*3/uL (0.00-0.03); Imm Gran Pct Auto 0.4 % (0.0-0.4); Lymphocytes Absolute Auto 2.4 X10*3/uL (1.2-4.9); Mean Corpuscular HGB Conc 32.3 g/dl (31.0-35.0); Mean Corpuscular Hemoglobin 27.8 pg (27.0-33.0); Mean Corpuscular Volume 86.1 fL (80.0-98.0); NRBC Abs Auto 0.000 X10*3/uL (0.0-0.012); NRBC Pct Auto 0.0 /100WBC (0.0-0.2); Platelet Count 208 X10*3/uL (160-400); Red Blood Count 5.10 X10*6/uL (4.20-5.50); White Blood Count 7.3 X10*3/uL (4.8-10.8)
[2024-12-18 09:07] LABS: Alanine Aminotransferase 41 U/L (0-31); Albumin Level 4.4 g/dL (3.5-5.0); Alkaline Phosphatase 78 U/L (39-117); Anion Gap 13 (12-20); Aspartate Amino Transferase 26 U/L (5-31); Blood Urea Nitrogen 26 mg/dL (9-16); Calcium 9.3 mg/dL (8.4-10.2); Carbon Dioxide 26 mmol/L (22-29); Chloride 107 mmol/L (96-108); Cholesterol 161 mg/dL (<200); Estimated Glomerular Filt Rate > 60; HDL Cholesterol 45 mg/dL (>40); Potassium 4.1 mmol/L (3.3-5.1); Sodium 142 mmol/L (135-145); Total Protein 6.9 g/dL (6.5-8.0); Triglycerides 142 mg/dL (<150)
== END 2024-12-18 07:52 | disposition home or self-care (01) ==
LOC: HO.LAB 07:51
PROVIDERS: PCP Internal Medicine; Visit Provider Internal Medicine
DX: Z00.00 Encounter for general adult medical examination without abnormal findings (principal); E11.9 Type 2 diabetes mellitus without complications; E66.3 Overweight
CPT/HCPCS: 36415; 80053; 80061; 82306; 83036; 84443; 85025

== ENCOUNTER 2024-12-22 08:45 | Outpatient (AMB) | payer BC, SELFPAY ==
--- NOTE | 2024-12-22 08:53 | A.OFFPC_ITS ---
Vital Signs 12/22/24 09:03 Height 5 ft 6 in Weight 229 lb BMI 37.0 BP 134/70 Blood Pressure Location Lt brachial Position Sitting Respiration 18 Pulse 69 Pulse Source Pulse Oximeter Temp 98.0 F Temp Source Oral Pulse Oximetry (%) 97 Oxygen Delivery Method Room Air Intake Visit Reasons: follow up Intake Note: Pt is here today for a follow up visit. Allergies erythromycin base Allergy (Unknown, Verified 12/22/24 09:10) Unknown hazelnut Allergy (Unknown, Verified 12/22/24 09:10) Unknown Sulfa (Sulfonamide Antibiotics) Allergy (Unknown, Verified 12/22/24 09:10) Unknown sulfamethoxazole (From Bactrim) Allergy (Unknown, Verified 12/22/24 09:10) Hives trimethoprim (From Bactrim) Allergy (Unknown, Verified 12/22/24 09:10) Hives semaglutide (From Ozempic) Adverse Reaction (Intermediate, Verified 12/22/24 09:50) blurred vision Medication List - Last Reconciled 12/22/24 by Chata Romero MD citalopram 20 mg PO DAILY epinephrine (EpiPen 2-Trey) 0.3 mg (0.3 mL) IM Q10M PRN [fish oil 1000 mg daily] lorazepam 0.5 mg PO DAILY PRN metformin ER 750 mg PO BID semaglutide 0.5 mg (0.374 mL) subcut QWEEK Tobacco use date assessed: 12/22/24 Dental Screening Dental Screen Date: 09/13/24 HPI follow up HPI Details Patient presents for the follow-up of type 2 diabetes and anxiety. She complains of blurred vision on Ozempic and has not been taking it for 1 week. 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 Patient has been under lot of stress related to her sick family members and boyfriend diagnosed with bladder and prostate cancer COUNTS INCLUDE 234 BEDS AT THE [facility] Medical History Gallbladder polyp Mammogram normal Abnormal colonoscopy Overweight Anxiety Annual physical exam Endometrial adenocarcinoma DM type 2 (diabetes mellitus, type 2) Surgical History History of surgery Family History Father Colon cancer Breast cancer Lung cancer Diabetes mellitus HTN (hypertension) Mother Diabetes mellitus HTN (hypertension) Social History Housing: House Alcohol intake: current Patient Tobacco Use Status: Former Tobacco user Years Smoked: quit 16 years ago e-Cigarette/Vaping Use: Never Used Second Hand Smoke Exposure: No service: No Current occupational status: employed Current occupation: [employer] Current occupational exposures/hazards: No Cognitive needs: No Hearing needs: No Vision needs: No Questionnaire Thrive Questionnaire Date Thrive assessed: 08/12/24 I am a: Patient What is your living situation today?: I have a steady place to live Within the past 12 months, did the food you bought not last and you didn't have the money to get more?: Never true Within the past 12 months, did you worry whether your food would run out before you got money to buy more?: Never true Do you have trouble paying for medicines?: No Do you have trouble getting transportation to medical appointments?: No Do you have trouble paying your heating and electricity bill?: No Do you have trouble taking care of your child, family member or friend?: No Do you have trouble with day-to-day activities such as bathing, preparing meals, shopping, managing finances, etc.?: No Are you currently unemployed and looking for a job?: No Are you interested in more education?: No Please select the resources that you would like help with: None Currently or been in a relationship where the following occur: No concerns reported THRIVE Score: 0 PARTH-7 AMB Questionnaire PARTH-7 Date PARTH - 7 assessed: 09/13/24 Source: Developed by Drs. Earnest Clayton, Joselyn Cedillo, Venu Shoemaker and colleagues, with an educational abdiaziz from [employer]. Review of Systems Const All systems reviewed & are unremarkable except as noted in HPI and below ENT Reports no additional complaints Card Reports no additional complaints Resp Reports no additional complaints GI Reports no additional complaints Reports no additional complaints Physical exam (Primary Care) Vital Signs: Last Vital Signs Temp 98.0 F 12/22/24 09:03 Pulse 69 12/22/24 09:03 Resp 18 12/22/24 09:03 BP 134/70 12/22/24 09:03 Pulse Ox 97 12/22/24 09:03 Oxygen Delivery Method Room Air 12/22/24 09:03 BMI result Body Mass Index 37.0 Tobacco/Smoking Status: Tobacco use Status Tobacco use date assessed 12/22/24 12/22/24 09:12 Patient Tobacco Use Status Former Tobacco user 12/22/24 08:53 e-Cigarette/Vaping Use Never Used 12/22/24 08:53 Thrive Assessment: Date of Thrive Assessment Date Thrive assessed 08/12/24 12/22/24 08:53 Currently or been in a relationship where the following occur: No concerns reported Const General: no acute distress HENMT Head: Yes normal to inspection Eyes General: appearance normal, both eyes and all related structures Pupils: Equal, round and reactive pupils present EOM: EOMs intact bilaterally Direct Ophthalmoscopy: normal light reflex Neck Neck: Yes no lymphadenopathy and Yes supple Resp Effort & Inspection: normal respiratory effort Auscultation: clear to auscultation bilaterally Cardio Rhythm: regular rhythm Heart sounds: S1 normal heart sound present and S2 normal heart sound present GI Inspection: Yes normal to inspection Palpation (GI): Soft to palpation Percussion: Yes normal to percussion Auscultation: normal bowel sounds Neuro Cranial nerves: Yes Equal, round and reactive pupils present Coding Level of Care Code Est Pt Level 4 (41969) Diagnoses DM type 2 (diabetes mellitus, type 2) E11.9 Anxiety F41.9 Assessment & Plan Assessment & Plan (1) DM type 2 (diabetes mellitus, type 2): Comment: Diet controlled, A1c is 6.07 September 2024 Code(s): E11.9 - Type 2 diabetes mellitus without complications Category: Medical Plan: A1c is 6.4, stop Ozempic, patient will restart metformin 750 twice a day. ADA diet increase physical activity discussed with the patient follow-up in 3 months with a fasting labs before (2) Anxiety: Code(s): F41.9 - Anxiety disorder, unspecified Category: Medical Plan: Patient will continue Citalopram Orders: Orders Comprehensive Eunice. Panel Fast 3 Months E11.9 - Type 2 diabetes mellitus without complications Complete Blood Count Auto Diff 3 Months E11.9 - Type 2 diabetes mellitus without complications Hemoglobin A1c 3 Months E11.9 - Type 2 diabetes mellitus without complications Lipid Panel 3 Months E11.9 - Type 2 diabetes mellitus without complications Microalbumin, Random (w Creat) 3 Months E11.9 - Type 2 diabetes mellitus without complications Medications: New metformin ER 750 mg PO BID 180 tabs 3RF Discontinued semaglutide Discontinued Reason: Doctor's Order 0.5 mg (0.374 mL) subcut QWEEK 4.5 mL 0RF
[2024-12-22 09:03] VITALS: BP 134/70; PULSE 69; RESP 18; TEMP 36.7; O2SAT 97; BMI 37.0
--- OUTSIDE RECORDS SUMMARY | 2024-12-22 09:19 | XMS_ITS | Clinical Summary ---
Author Organization [facility] Address [address] [facility] [address] [place] [id number] Phone Care Team Providers Care English Faculty Member Name Role Phone Chata Romero MD Primary Care Provider [phone] Allergies Active Allergy Reactions Criticality Noted Date [...] this topic Medical Devices Implanted Type Area Terrazzo Finisher Helper Device Identifier Shelf Expiration Date Model / Serial / Lot Breast Clips Toes Procedures Procedure Name Priority Date/Time Associated Diagnosis Comments ENDOSCOPY, COLON 08/20/2023 8:26 AM EDT from Last 3 Months or Most Recently Relevant to Health Maintenance Results * ENDOSCOPY, COLON (08/20/2023 8:26 AM EDT) Narrative Transcriptions Casandra Barker MD - 08/20/2023 8:26 AM EDT [facility] Patient Name: Robyn Randle Attending MD:: CASANDRA BARKER MD, Procedure Date: 08/20/2023 8:26 AM Date of : 1965 Age: 57 Admit Type: Outpatient Gender: Female Room: [facility] Referring MD: Chata Romero MD Exam Type: [...] monitored continuously. The Olympus adult variable colonoscope [id number] #[id number] was introduced through the anus and [...] 8:26 AM Procedure Code(s): --- Professional --- 21097, Colonoscopy, flexible; with removal of tumor(s), polyp(s), or other lesion(s) by snare technique --- Technical --- 97806, Colonoscopy, flexible; with removal of tumor(s), polyp(s), [...] congenital malformations of intestine CPT copyright 2021 [employer]. All rights reserved. The codes documented in this report are preliminary and upon adzing and boring machine helper reviewmay be revised to meet current compliance requirements. Procedure Date: 08/20/2023 8:26:47 AM [address] [place] [address] Chata Romero MD GI PROCEDURE ORDERABLES Final Result from Last 3 Months or Most Recently Relevant to Health Maintenance Insurance [address] [place], [place] [id number] [place] [address] [place], [place] [address]O [place] [address] [place], [place] [address]O [facility] E[facility] Care Teams English Faculty Member Relationship Specialty Start Date End Date Chata Romero MD [address] [place] [address] PCP - General Internal Medicine 03/13/18 Additional Source Comments The information contained in this document represents components of the legal health record. It is not the complete legal health record.[facility]
--- OUTSIDE RECORDS SUMMARY | 2024-12-22 09:19 | XMS_ITS | Encounter Summary ---
Author Organization [facility] Address [address] [facility] [place] [address] Phone Care Team Providers Care Wedding Decorator Name Role Phone Chata Romero MD Primary Care Provider Encounter Details Date Type Department Care Team (Late st Contact Info) Description 08/20/2023 Procedure Pass [facility] Endoscopy Admitting Dept Virtual Department [address] [place] [address] Social History Tobacco Use Types Packs/Day Years [...] on filedocumented in this encounter Care Teams Wedding Decorator Relationship Specialty Start Date End Date Chata Romero MD [facility] [place] [address] PCP - General Internal Medicine 03/13/18 documented as of this encounter Additional Source Comments The information contained in this document represents components of the legal health record. It is not the complete legal health record.[facility]
--- OUTSIDE RECORDS SUMMARY | 2024-12-22 09:19 | XMS_ITS | Clinical Summary ---
Author Organization [facility] Address [address] [place] [address] Care Team Providers Care Preparole Counseling Aide Name Role Phone Unavailable Primary Care Provider [...] Personal/Family Self 1965 [address] [place] [address]
--- OUTSIDE RECORDS SUMMARY | 2024-12-22 09:19 | XMS_ITS | Clinical Summary ---
Author Organization [facility] Address [address] [place] [address] Care Team Providers Care Shoe Coverer Name Role Phone Pcp, No Primary Care [...] 6 season) 2024 04/25/2020, 03/06/2020 RSV Vaccine 50 years and older and Patients (1 - 1-dose 75+ series) 12/02/2038 Hepatitis B Vaccines Aged Out No long er eligible based on patient's age to complete this topic Insurance [facility] - [employer] Care Teams Shoe Coverer Relationship Specialty Start Date End Date Pcp, No PCP - General General Medicine 08/11/20
--- OUTSIDE RECORDS SUMMARY | 2024-12-22 09:19 | XMS_ITS | Encounter Summary ---
Author Organization [facility] Address [address] [facility] [address] [place] [address] Phone Care Team Providers Care Rejector Name Role Phone Chata Romero MD Primary Care Provider [phone] Encounter Details Date Type Department Care Team (Late st Contact Info) Description 03/13/2018 Procedure Pass [facility] Endoscopy Admitting Dept Virtual Department [address] [place] [id number] Social History Tobacco Use Types Packs/Day Years [...] on filedocumented in this encounter Care Teams Rejector Relationship Specialty Start Date End Date Chata Romero MD [facility] [place] [address] PCP - General Internal Medicine 03/13/18 documented as of this encounter Additional Source Comments The information contained in this document represents components of the legal health record. It is not the complete legal health record.[facility]
--- OUTSIDE RECORDS SUMMARY | 2024-12-22 09:19 | XMS_ITS | Encounter Summary ---
Author Organization [facility] Address [address] [facility] [address] [place] [address] Phone Care Team Providers Care Service Desk Director Name Role Phone Chata Romero MD Primary Care Provider [phone] Encounter Details Date Type Department Care Team (Late st Contact Info) Description 12/18/2022 Procedure Pass [facility] Endoscopy Admitting Dept Virtual Department [address] [place] [address] Social History Tobacco Use Types Packs/Day Years [...] on filedocumented in this encounter Care Teams Service Desk Director Relationship Specialty Start Date End Date Chata Romero MD [address] [facility] [place] [address] PCP - General Internal Medicine 03/13/18 documented as of this encounter Additional Source Comments The information contained in this document represents components of the legal health record. It is not the complete legal health record.[facility]
== END 2024-12-22 09:48 | disposition home or self-care (01) ==
LOC: HO.HMCC 08:46
PROVIDERS: PCP Internal Medicine; Visit Provider Internal Medicine
DX: E11.9 Type 2 diabetes mellitus without complications (principal); F41.9 Anxiety disorder, unspecified